=== PATIENT | male | born 1950 | race African-American/Black ===

== ENCOUNTER 2019-08-09 00:06 | Emergency (ER) | payer OTHER, MEDICAID ==
[~2019-08-09] VITALS: Ht 185.4 cm; Wt 131.5 kg
[2019-08-09] MEDS ORDERED: cloNIDine HCL 0.1 MG TAB PO ONE (01:45)
[2019-08-09 02:00] LABS: Basophils # (auto) 0 10 ^3/uL (0-0.2); Eosinophils # (auto) 0.2 10 ^3/uL (0-0.8); Eosinophils % (auto) 5.2 % (0.0-7.0); Hematocrit 43.1 % (41.0-53.0); Hemoglobin 14.6 g/dL (13.5-17.5); Lymphocytes # (auto) 1.1 10 ^3/uL (0.4-5.4); Lymphocytes % (auto) 30.1 % (10.0-50.0); Mean Corpuscular Hemoglobin 31.2 pg (28.0-32.0); Mean Corpuscular Hgb Conc. 33.8 g/dL (32.0-36.0); Mean Corpuscular Volume 92.3 fL (80.0-100.0); Monocytes # (auto) 0.6 10 ^3/uL (0-1.3); Monocytes % (auto) 16.6 % (0.0-12.0); Neutrophils # (auto) 1.8 10 ^3/uL (1.6-8.6); Neutrophils % (auto) 47.1 % (37.0-80.0); Nucleated Red Blood Cells % 0.1 %; Platelet Count (auto) 202 10^3/uL (140-450); Red Blood Cells 4.66 10^6/uL (4.5-5.90); Red Cell Distribution Width 13.6 % (11.8-14.3); White Blood Cell 3.8 10^3/uL (4.4-10.8)
[2019-08-09 03:13] LABS: INR 1.03 (0.9-1.15); Partial Thromboplastin Time 31.6 sec (23.64-32.05)
[2019-08-09 03:26] LABS: Alanine Aminotransferase 22 U/L (16-61); Albumin 4.1 g/dL (3.4-5.0); Anion Gap 9 (5-15); Aspartate Aminotransferase 16 U/L (15-37); Blood Urea Nitrogen 14 mg/dL (7-18); Carbon Dioxide 27 mmol/L (21-32); Chloride 88 mmol/L (98-107); GFR African American 96 mL/min; GFR Non-African American 79 mL/min; Glucose 119 mg/dL (74-106); Magnesium 1.9 mg/dL (1.6-2.6); Sodium 124 mmol/L (136-145)
[2019-08-09 03:31] LABS: Alkaline Phosphatase 86 U/L (45-117); Bilirubin, Total 0.4 mg/dL (0.2-1.0); Total Protein 7.9 g/dL (6.4-8.2)
[2019-08-09] MEDS ORDERED: POTASSIUM CHL 20 Meq TABLET PO ONE (04:45)
[2019-08-09] MEDS ORDERED: SODIUM CHLORIDE 0.9% 1,000 ML IV ONE (04:45)
[2019-08-09] MEDS ORDERED: hydrALAZINE HCL 20 MG/ML VL IV ONE (05:15)
[2019-08-09] MEDS ORDERED: POTASSIUM EFFERVESENT TAB 25 MEQ PO ONE (07:15)
[2019-08-09 09:38] LABS: Urine Bacteria NONE SEEN /hpf (None Seen); Urine Blood Negative /uL (Negative); Urine Specific Gravity 1.014 (1.001-1.035); Urine WBC <1 /hpf (0 - 3)
[2019-08-09 12:00] VITALS: BP 114/68
== END 2019-08-09 12:52 | disposition home or self-care (01) ==
LOC: ER 00:08
DX: R07.89 Other chest pain (principal); I10 Essential (primary) hypertension; E87.6 Hypokalemia; E87.1 Hypo-osmolality and hyponatremia; E78.5 Hyperlipidemia, unspecified; Z91.013 Allergy to seafood; Z88.8 Allergy status to other drugs, medicaments and biological substances; Z86.73 Personal history of transient ischemic attack (TIA), and cerebral infarction without residual deficits
CPT/HCPCS: 36415; 71046; 80053; 81001; 83735; 83880; 84443; 84484; 85025; 85610; 85730; 93005; 96374; 99285; J0360; J7030

== ENCOUNTER 2020-03-30 21:10 | Emergency (ER) | payer OTHER, MEDICAID ==
[~2020-03-30] VITALS: Ht 188 cm; Wt 112.0 kg
[2020-03-30] MEDS: SODIUM CHLORIDE 0.9% 1,000 ML IV ONE (22:35)
[2020-03-30] MEDS: ONDANSETRON HCL 4 MG/2 ML VIAL IV ONE (22:37)
[2020-03-30 23:04] LABS: Basophils # (auto) 0.1 10 ^3/uL (0-0.2); Basophils % (auto) 1.2 % (0.0-2.0); Eosinophils # (auto) 0.2 10 ^3/uL (0-0.8); Eosinophils % (auto) 3.3 % (0.0-7.0); Hematocrit 43.5 % (41.0-53.0); Lymphocytes # (auto) 1.4 10 ^3/uL (0.4-5.4); Lymphocytes % (auto) 22.7 % (10.0-50.0); Mean Corpuscular Hemoglobin 31.8 pg (28.0-32.0); Mean Corpuscular Hgb Conc. 34.5 g/dL (32.0-36.0); Monocytes # (auto) 0.7 10 ^3/uL (0-1.3); Monocytes % (auto) 11.2 % (0.0-12.0); Neutrophils # (auto) 3.7 10 ^3/uL (1.6-8.6); Neutrophils % (auto) 61.6 % (37.0-80.0); Nucleated Red Blood Cells % 0.1 %; Platelet Count (auto) 210 10^3/uL (140-450); Red Blood Cells 4.73 10^6/uL (4.5-5.90); Red Cell Distribution Width 13.5 % (11.8-14.3)
[2020-03-30 23:23] LABS: Albumin 4.3 g/dL (3.4-5.0); Anion Gap 7 (5-15); Blood Urea Nitrogen 19 mg/dL (7-18); Calcium 8.8 mg/dL (8.5-10.1); Carbon Dioxide 29 mmol/L (21-32); Chloride 100 mmol/L (98-107); Glucose 89 mg/dL (74-106); Potassium 3.6 mmol/L (3.5-5.1); Sodium 136 mmol/L (136-145)
[2020-03-30 23:25] LABS: GFR African American 73 mL/min; GFR Non-African American 60 mL/min
[2020-03-30 23:33] LABS: Alanine Aminotransferase 21 U/L (16-61); Alkaline Phosphatase 91 U/L (45-117); Aspartate Aminotransferase 15 U/L (15-37); Bilirubin, Total 0.4 mg/dL (0.2-1.0); Total Protein 8.3 g/dL (6.4-8.2)
[2020-03-30] MEDS: cloNIDine HCL 0.1 MG TAB PO ONE (23:46)
[2020-03-31 00:05] LABS: Urine Bacteria NONE SEEN /hpf (None Seen); Urine Blood Negative /uL (Negative); Urine Specific Gravity 1.011 (1.001-1.035); Urine WBC <1 /hpf (0 - 3)
[2020-03-31] MEDS: MECLIZINE HCL 25 MG TAB PO ONE (00:32)
[2020-03-31 00:45] VITALS: BP 154/95
== END 2020-03-31 02:33 | disposition home or self-care (01) ==
LOC: ER 21:10
DX: R42 Dizziness and giddiness (principal); I10 Essential (primary) hypertension; E78.5 Hyperlipidemia, unspecified
CPT/HCPCS: 36415; 70450; 80053; 81001; 84484; 85025; 93005; 99285; J8597

== ENCOUNTER 2020-07-06 18:38 | Emergency (ER) | payer OTHER, MEDICAID ==
[~2020-07-06] VITALS: Ht 182.9 cm; Wt 114.8 kg
[2020-07-06] MEDS ORDERED: cloNIDine HCL 0.1 MG TAB ONE (18:41)
[2020-07-06] MEDS ORDERED: cloNIDine HCL 0.1 MG TAB PO ONE (18:45)
[2020-07-06 21:40] LABS: Basophils # (auto) 0 10 ^3/uL (0-0.2); Basophils % (auto) 1.1 % (0.0-2.0); Eosinophils # (auto) 0.2 10 ^3/uL (0-0.8); Eosinophils % (auto) 5.6 % (0.0-7.0); Hematocrit 37.9 % (41.0-53.0); Hemoglobin 13.2 g/dL (13.5-17.5); Lymphocytes # (auto) 1.3 10 ^3/uL (0.4-5.4); Lymphocytes % (auto) 34.1 % (10.0-50.0); Mean Corpuscular Hgb Conc. 34.8 g/dL (32.0-36.0); Mean Corpuscular Volume 91.9 fL (80.0-100.0); Monocytes # (auto) 0.6 10 ^3/uL (0-1.3); Monocytes % (auto) 15.2 % (0.0-12.0); Neutrophils # (auto) 1.7 10 ^3/uL (1.6-8.6); Platelet Count (auto) 201 10^3/uL (140-450); Red Blood Cells 4.13 10^6/uL (4.5-5.90); Red Cell Distribution Width 13.6 % (11.8-14.3); White Blood Cell 3.8 10^3/uL (4.4-10.8)
[2020-07-06 22:00] LABS: BUN/Creatinine Ratio 11.9; Calcium 8.7 mg/dL (8.5-10.1); Magnesium 2.1 mg/dL (1.6-2.6); Potassium 3.2 mmol/L (3.5-5.1)
[2020-07-06 22:02] LABS: Bilirubin, Total 0.4 mg/dL (0.2-1.0); Total Protein 7.3 g/dL (6.4-8.2)
[2020-07-06] MEDS ORDERED: POTASSIUM EFFERVESENT TAB 25 MEQ PO ONE (23:00)
[2020-07-07 00:10] VITALS: BP 164/94
== END 2020-07-07 00:20 | disposition home or self-care (01) ==
LOC: ER 18:40
DX: I10 Essential (primary) hypertension (principal); E78.5 Hyperlipidemia, unspecified; Z91.041 Radiographic dye allergy status
CPT/HCPCS: 36415; 71045; 80053; 83735; 83880; 84484; 85025; 93005

== ENCOUNTER 2021-10-23 01:28 | Inpatient (IN) | payer OTHER, MEDICAID ==
[~2021-10-23] VITALS: Ht 182.9 cm; Wt 125.1 kg
[2021-10-23] VITALS (29 sets, daily range): BP systolic 79–125; BP diastolic 49–84
[2021-10-23] MEDS ORDERED: IOHEXOL 350 MG/ML 100ML IJ ONE (01:57)
[2021-10-23] MEDS ORDERED: SODIUM CHLORIDE 0.9% 1,000 ML IV ONE (02:00)
[2021-10-23] MEDS ORDERED: SODIUM CHLORIDE 0.9% 3,500 ML IV ONE (02:30)
[2021-10-23 02:41] LABS: Basophils # (auto) 0 10 ^3/uL (0-0.2); Eosinophils # (auto) 0 10 ^3/uL (0-0.8); Eosinophils % (auto) 0.1 % (0.0-7.0); Hematocrit 17.1 % (41.0-53.0); Red Blood Cells 1.82 10^6/uL (4.5-5.90)
[2021-10-23 02:43] LABS: Basophils % (auto) 0.2 % (0.0-2.0); Lymphocytes # (auto) 1.2 10 ^3/uL (0.4-5.4); Lymphocytes % (auto) 10.9 % (10.0-50.0); Mean Corpuscular Hemoglobin 32.6 pg (28.0-32.0); Mean Corpuscular Hgb Conc. 34.8 g/dL (32.0-36.0); Mean Corpuscular Volume 93.6 fL (80.0-100.0); Monocytes # (auto) 0.7 10 ^3/uL (0-1.3); Monocytes % (auto) 6.7 % (0.0-12.0); Neutrophils # (auto) 8.7 10 ^3/uL (1.6-8.6); Neutrophils % (auto) 82.1 % (37.0-80.0); Nucleated Red Blood Cells % 0.5 %; Red Cell Distribution Width 13.4 % (11.8-14.3); White Blood Cell 10.6 10^3/uL (4.4-10.8)
[2021-10-23 02:46] LABS: Hemoglobin 5.9 g/dL (13.5-17.5)
[2021-10-23 02:57] LABS: INR 1.18 (0.9-1.15); Partial Thromboplastin Time 23.1 sec (23.6-33.0)
[2021-10-23 03:01] LABS: Albumin 2.7 g/dL (3.4-5.0); BUN/Creatinine Ratio 26.3; Calcium 7.8 mg/dL (8.5-10.1); Potassium 3.6 mmol/L (3.5-5.1)
[2021-10-23 03:04] LABS: Bilirubin, Total 0.2 mg/dL (0.2-1.0); Total Protein 4.9 g/dL (6.4-8.2)
[2021-10-23] MEDS ORDERED: fentaNYL CITRATE 100 MCG/2 ML VL IV ONE (05:00)
[2021-10-23] MEDS ORDERED: SODIUM CHLORIDE 0.9% 1,000 ML IV SCH (06:45)
[2021-10-23] MEDS ORDERED: MORPHINE SULFATE INJ 2 MG/ml SYRG IV PRN (06:45)
[2021-10-23] MEDS ORDERED: ONDANSETRON HCL 4 MG/2 ML VIAL IV PRN (06:45)
[2021-10-23 11:28] LABS: Hematocrit 25.7 % (41.0-53.0); Hemoglobin 8.8 g/dL (13.5-17.5)
[2021-10-23] MEDS: AZITHROMYCIN 500MG/ 250ML 250 ML IV SCH (11:43)
[2021-10-23] MEDS: PANTOPRAZOLE 40mg/50ML NS AE 50 ML IV SCH ×2 (12:25→12:33)
[2021-10-23 13:32] LABS: Urine Bacteria NONE SEEN /hpf (None Seen); Urine Blood Negative /uL (Negative); Urine WBC <1 /hpf (0 - 3)
[2021-10-23] MEDS ORDERED: FUROSEMIDE 20 MG/2 ML VIAL IV ONE (14:30)
[2021-10-23] MEDS ORDERED: PANTOPRAZOLE 40 MG/10 ML VIAL INJ IV ONE (14:30)
[2021-10-23] MEDS ORDERED: cefTRIAXone 1GM/50ML D5W 50 ML IV ONE (14:45)
[2021-10-23 15:20] LABS: Alcohol, Urine < 3.0 mg/dL (0-10); Barbiturate Scree,Urine NEGATIVE (NEGATIVE); Benzodiazephine Screen, Urine NEGATIVE (NEGATIVE); Cannabinoid Screen, Urine NEGATIVE (NEGATIVE); Phencyclidine Screen, Urine NEGATIVE (NEGATIVE)
[2021-10-23 15:23] LABS: Amphetamine Screen, Urine NEGATIVE (NEGATIVE); Cocaine Screen, Urine NEGATIVE (NEGATIVE); Opiate Scree,Urine NEGATIVE (NEGATIVE)
[2021-10-23] MEDS ORDERED: DIGOXIN (250MCG/ML) 2 ML AMPULE IV ONE (16:30)
[2021-10-23] MEDS: SUCRALFATE 1 GM TAB PO SCH ×2 (17:12→21:47)
[2021-10-23] MEDS: PANTOPRAZOLE 40 MG/10 ML VIAL INJ IV SCH (21:46)
[2021-10-24] VITALS (11 sets, daily range): BP systolic 97–133; BP diastolic 58–80
[2021-10-24] MEDS: NITROGLYCERIN 0.4 MG SL TAB SL PRN ×2 (02:37→02:41)
[2021-10-24] MEDS ORDERED: dilTIAZem 25 MG/5 ML VIAL IV ONE (03:00)
[2021-10-24 05:11] LABS: Basophils # (auto) 0 10 ^3/uL (0-0.2); Eosinophils # (auto) 0.2 10 ^3/uL (0-0.8); Lymphocytes # (auto) 0.9 10 ^3/uL (0.4-5.4); Monocytes # (auto) 1.3 10 ^3/uL (0-1.3); White Blood Cell 12.8 10^3/uL (4.4-10.8)
[2021-10-24 05:13] LABS: Basophils % (auto) 0.2 % (0.0-2.0); Eosinophils % (auto) 1.4 % (0.0-7.0); Hematocrit 18.4 % (41.0-53.0); Lymphocytes % (auto) 6.8 % (10.0-50.0); Mean Corpuscular Hemoglobin 32.9 pg (28.0-32.0); Mean Corpuscular Hgb Conc. 36.3 g/dL (32.0-36.0); Mean Corpuscular Volume 90.5 fL (80.0-100.0); Neutrophils # (auto) 10.4 10 ^3/uL (1.6-8.6); Neutrophils % (auto) 81.6 % (37.0-80.0); Nucleated Red Blood Cells % 1.2 %; Red Blood Cells 2.03 10^6/uL (4.5-5.90); Red Cell Distribution Width 14.8 % (11.8-14.3)
[2021-10-24 05:14] LABS: Albumin 2.2 g/dL (3.4-5.0); Magnesium 2.1 mg/dL (1.6-2.6); Potassium 3.4 mmol/L (3.5-5.1)
[2021-10-24 05:17] LABS: BUN/Creatinine Ratio 26.6; Bilirubin, Total 0.2 mg/dL (0.2-1.0); Total Protein 4.6 g/dL (6.4-8.2)
[2021-10-24 05:22] LABS: Hemoglobin 6.7 g/dL (13.5-17.5)
[2021-10-24] MEDS: SUCRALFATE 1 GM TAB PO SCH ×4 (06:19→22:37)
[2021-10-24 06:53] LABS: Eosinophils # (auto) 0.2 10 ^3/uL (0-0.8); Eosinophils % (auto) 1.3 % (0.0-7.0); Lymphocytes # (auto) 1.3 10 ^3/uL (0.4-5.4); Monocytes # (auto) 1.4 10 ^3/uL (0-1.3); Neutrophils # (auto) 10.7 10 ^3/uL (1.6-8.6); Red Cell Distribution Width 14.8 % (11.8-14.3); White Blood Cell 13.7 10^3/uL (4.4-10.8)
[2021-10-24 06:55] LABS: Basophils # (auto) 0 10 ^3/uL (0-0.2); Basophils % (auto) 0.2 % (0.0-2.0); Hematocrit 18.3 % (41.0-53.0); INR 1.18 (0.9-1.15); Lymphocytes % (auto) 9.7 % (10.0-50.0); Mean Corpuscular Hemoglobin 32.5 pg (28.0-32.0); Mean Corpuscular Hgb Conc. 35.9 g/dL (32.0-36.0); Mean Corpuscular Volume 90.3 fL (80.0-100.0); Monocytes % (auto) 10.5 % (0.0-12.0); Neutrophils % (auto) 78.3 % (37.0-80.0); Partial Thromboplastin Time 29.3 sec (23.6-33.0); Red Blood Cells 2.03 10^6/uL (4.5-5.90)
[2021-10-24 07:30] LABS: Hemoglobin 6.6 g/dL (13.5-17.5)
[2021-10-24] MEDS ORDERED: SODIUM CHLORIDE LOCK 10 ML ONE (09:28)
[2021-10-24] MEDS ORDERED: MIDAZOLAM HCL 5 MG/ML-1ML VIAL ONE (09:29)
[2021-10-24] MEDS ORDERED: LIDOCAINE VISCOUS 2% 15ML UD ONE (09:29)
[2021-10-24] MEDS ORDERED: diphenhdrAMINE HCL 50 MG/1 ML VL ONE (09:29)
[2021-10-24] MEDS ORDERED: fentaNYL CITRATE 100 MCG/2 ML VL ONE (09:30)
[2021-10-24] MEDS: DIGOXIN 0.125 MG TAB PO SCH ×2 (10:00→15:03)
[2021-10-24] MEDS ORDERED: OXCA600T3 PO (10:38)
[2021-10-24] MEDS ORDERED: LOSA-39 PO (10:38)
[2021-10-24] MEDS ORDERED: METO-158 PO (10:38)
[2021-10-24] MEDS ORDERED: HYDR25TA4 PO (10:38)
[2021-10-24] MEDS ORDERED: TERA10CA36 PO (10:38)
[2021-10-24] MEDS ORDERED: [UNRECOGNIZED DRUG - CODE] PO (10:39)
[2021-10-24] MEDS ORDERED: METOPROLOL TARTRATE 1MG/1ML-5ML VIAL IV ONE (12:45)
[2021-10-24] MEDS: cefTRIAXone 1GM/50ML D5W 50 ML IV SCH (12:59)
[2021-10-24] MEDS ORDERED: DIGOXIN (250MCG/ML) 2 ML AMPULE IV ONE ×2 (13:45→14:45)
[2021-10-24] MEDS: AZITHROMYCIN 500MG/ 250ML 250 ML IV SCH (14:05)
[2021-10-24] MEDS: FUROSEMIDE 20 MG/2 ML VIAL IV SCH (14:06)
[2021-10-24] MEDS: PANTOPRAZOLE 40 MG/10 ML VIAL INJ IV SCH ×2 (14:24→22:37)
[2021-10-24] MEDS: HYDROmorphone HCL 2 MG/ML VL/or syr IV PRN (14:25)
[2021-10-24] MEDS ORDERED: POTASSIUM EFFERVESENT TAB 25 MEQ PO ONE (16:15)
[2021-10-24] MEDS ORDERED: AMIODARONE HCL 150 MG in D5W 5% 100 ML IV ONE (16:15)
[2021-10-24] MEDS ORDERED: AMIODARONE 450mg/250ml AE 250 ML IV SCH ×3 (16:30→22:30)
[2021-10-24] MEDS: OXcarbazepine 300 MG TAB PO SCH (16:54)
[2021-10-24] MEDS ORDERED: BACLOFEN 10 MG TAB PO ONE (17:15)
[2021-10-24] MEDS ORDERED: BACLOFEN 10 MG TAB PO PRN (17:15)
[2021-10-24] MEDS ORDERED: AMIODARONE HCL (50 MG/ ML) 3 ML VIAL IV ONE (17:30)
[2021-10-24] MEDS ORDERED: FUROSEMIDE 20 MG/2 ML VIAL IV ONE (17:30)
[2021-10-24] MEDS ORDERED: POTASSIUM CHLORIDE 40 MEQ, LIDOCAINE 1% (LOCAL ANESTH.) 4 ML in SODIUM CHL 0.9% 250 ML IV ONE (17:30)
[2021-10-24 19:13] LABS: Basophils # (auto) 0 10 ^3/uL (0-0.2); Basophils % (auto) 0.3 % (0.0-2.0); Eosinophils # (auto) 0.4 10 ^3/uL (0-0.8); Eosinophils % (auto) 2.7 % (0.0-7.0); Hematocrit 26.2 % (41.0-53.0); Hemoglobin 9.2 g/dL (13.5-17.5); Lymphocytes # (auto) 1.8 10 ^3/uL (0.4-5.4); Lymphocytes % (auto) 13.5 % (10.0-50.0); Mean Corpuscular Hemoglobin 31.9 pg (28.0-32.0); Mean Corpuscular Volume 91.2 fL (80.0-100.0); Monocytes # (auto) 1.5 10 ^3/uL (0-1.3); Neutrophils # (auto) 9.6 10 ^3/uL (1.6-8.6); Neutrophils % (auto) 72.5 % (37.0-80.0); Nucleated Red Blood Cells % 1.5 %; Red Blood Cells 2.88 10^6/uL (4.5-5.90); Red Cell Distribution Width 14.4 % (11.8-14.3); White Blood Cell 13.3 10^3/uL (4.4-10.8)
[2021-10-24] MEDS: METOPROLOL TARTRATE 25 MG TAB PO SCH (22:38)
[2021-10-25 05:00] VITALS: BP 110/56
[2021-10-25] MEDS: OXcarbazepine 300 MG TAB PO SCH ×4 (06:42→19:33)
[2021-10-25] MEDS: SUCRALFATE 1 GM TAB PO SCH ×4 (06:42→22:15)
[2021-10-25 07:21] LABS: Basophils # (auto) 0 10 ^3/uL (0-0.2); Basophils % (auto) 0.3 % (0.0-2.0); Eosinophils # (auto) 0.4 10 ^3/uL (0-0.8); Eosinophils % (auto) 3.5 % (0.0-7.0); Lymphocytes # (auto) 1.5 10 ^3/uL (0.4-5.4); Mean Corpuscular Hemoglobin 32.1 pg (28.0-32.0); Monocytes # (auto) 1.2 10 ^3/uL (0-1.3); Nucleated Red Blood Cells % 2.1 %; Red Blood Cells 2.61 10^6/uL (4.5-5.90)
[2021-10-25 07:23] LABS: Lymphocytes % (auto) 13.4 % (10.0-50.0); Mean Corpuscular Hgb Conc. 34.8 g/dL (32.0-36.0); Monocytes % (auto) 10.6 % (0.0-12.0); Neutrophils % (auto) 72.2 % (37.0-80.0); Red Cell Distribution Width 14.3 % (11.8-14.3); White Blood Cell 11.1 10^3/uL (4.4-10.8)
[2021-10-25 07:32] LABS: Hemoglobin 8.4 g/dL (13.5-17.5)
[2021-10-25 07:37] LABS: BUN/Creatinine Ratio 18.1; Calcium 7.4 mg/dL (8.5-10.1); Magnesium 2.1 mg/dL (1.6-2.6); Potassium 3.8 mmol/L (3.5-5.1)
[2021-10-25 08:00] VITALS: BP 121/61
[2021-10-25 09:00] VITALS: BP 121/61
[2021-10-25] MEDS: AZITHROMYCIN 500MG/ 250ML 250 ML IV SCH (09:48)
[2021-10-25] MEDS: cefTRIAXone 1GM/50ML D5W 50 ML IV SCH (09:48)
[2021-10-25] MEDS: PANTOPRAZOLE 40 MG/10 ML VIAL INJ IV SCH ×2 (09:48→22:15)
[2021-10-25] MEDS: DIGOXIN 0.125 MG TAB PO SCH (09:49)
[2021-10-25] MEDS: FUROSEMIDE 20 MG/2 ML VIAL IV SCH (09:49)
[2021-10-25] MEDS: METOPROLOL TARTRATE 25 MG TAB PO SCH ×2 (09:49→22:15)
[2021-10-25 13:00] VITALS: BP 122/61
[2021-10-25] MEDS: AMIODARONE 450mg/250ml AE 250 ML IV SCH (14:14)
[2021-10-25 17:00] VITALS: BP 119/62
[2021-10-25 22:00] VITALS: BP 116/76
[2021-10-26] MEDS: OXcarbazepine 300 MG TAB PO SCH ×5 (00:12→23:46)
[2021-10-26] MEDS: AMIODARONE 450mg/250ml AE 250 ML IV SCH ×2 (04:26→04:58)
[2021-10-26 05:00] VITALS: BP 113/61
[2021-10-26] MEDS: SUCRALFATE 1 GM TAB PO SCH ×4 (06:12→22:46)
[2021-10-26 07:07] LABS: Eosinophils # (auto) 0.2 10 ^3/uL (0-0.8); Hemoglobin 7.6 g/dL (13.5-17.5); Monocytes # (auto) 1.4 10 ^3/uL (0-1.3); White Blood Cell 11.2 10^3/uL (4.4-10.8)
[2021-10-26 07:10] LABS: Basophils # (auto) 0 10 ^3/uL (0-0.2); Basophils % (auto) 0.1 % (0.0-2.0); Eosinophils % (auto) 1.8 % (0.0-7.0); Hematocrit 21.9 % (41.0-53.0); Lymphocytes # (auto) 1.2 10 ^3/uL (0.4-5.4); Lymphocytes % (auto) 10.5 % (10.0-50.0); Mean Corpuscular Hemoglobin 32.3 pg (28.0-32.0); Mean Corpuscular Hgb Conc. 34.7 g/dL (32.0-36.0); Monocytes % (auto) 12.8 % (0.0-12.0); Neutrophils # (auto) 8.4 10 ^3/uL (1.6-8.6); Neutrophils % (auto) 74.8 % (37.0-80.0); Nucleated Red Blood Cells % 0.6 %; Red Blood Cells 2.36 10^6/uL (4.5-5.90); Red Cell Distribution Width 14.3 % (11.8-14.3)
[2021-10-26 08:37] VITALS: BP 120/72
[2021-10-26] MEDS ORDERED: fentaNYL CITRATE 100 MCG/2 ML VL ONE (09:07)
[2021-10-26] MEDS ORDERED: SODIUM CHLORIDE LOCK 10 ML ONE (09:08)
[2021-10-26] MEDS ORDERED: PROPOFOL 10 MG/ML 20 ML IV ONE ×2 (09:08→10:48)
[2021-10-26] MEDS ORDERED: ONDANSETRON HCL 4 MG/2 ML VIAL ONE (09:08)
[2021-10-26] MEDS ORDERED: MIDAZOLAM HCL 2MG/2ML 2ml VIAL (1mg/ml) ONE (09:08)
[2021-10-26] MEDS: cefTRIAXone 1GM/50ML D5W 50 ML IV SCH (10:11)
[2021-10-26] MEDS: METOPROLOL TARTRATE 25 MG TAB PO SCH ×2 (10:12→22:47)
[2021-10-26] MEDS: PANTOPRAZOLE 40 MG/10 ML VIAL INJ IV SCH ×2 (10:12→22:46)
[2021-10-26] MEDS: AMIODARONE HCL 200 MG TAB PO SCH ×2 (10:12→22:48)
[2021-10-26] MEDS: FUROSEMIDE 20 MG/2 ML VIAL IV SCH (10:12)
[2021-10-26] MEDS ORDERED: DexAMETHasone SOD PHOS 10MG/1ML VIAL INJ IV ONE (13:22)
[2021-10-26] MEDS: AZITHROMYCIN 500MG/ 250ML 250 ML IV SCH ×2 (14:12→18:33)
[2021-10-26] MEDS ORDERED: traMADol HCL 50 MG TAB PO PRN (15:00)
[2021-10-26] MEDS: traMADol HCL 50 MG TAB PO PRN (15:30)
[2021-10-26] MEDS ORDERED: GOLYTELY 4L KIT PO ONE (15:45)
[2021-10-26 17:00] VITALS: BP 116/55
[2021-10-26 22:00] VITALS: BP 143/80
[2021-10-27 05:00] VITALS: BP 148/81
[2021-10-27] MEDS: SUCRALFATE 1 GM TAB PO SCH ×4 (05:43→21:38)
[2021-10-27] MEDS: OXcarbazepine 300 MG TAB PO SCH ×3 (05:43→18:34)
[2021-10-27 09:00] VITALS: BP 99/60
[2021-10-27] MEDS ORDERED: MIDAZOLAM HCL 2MG/2ML 2ml VIAL (1mg/ml) ONE (09:39)
[2021-10-27] MEDS ORDERED: PROPOFOL 10 MG/ML 20 ML IV ONE (09:39)
[2021-10-27] MEDS: AMIODARONE HCL 200 MG TAB PO SCH ×2 (10:00→21:38)
[2021-10-27] MEDS: FUROSEMIDE 20 MG/2 ML VIAL IV SCH (10:00)
[2021-10-27] MEDS: METOPROLOL TARTRATE 25 MG TAB PO SCH ×2 (10:00→21:38)
[2021-10-27] MEDS ORDERED: fentaNYL CITRATE 100 MCG/2 ML VL ONE (10:12)
[2021-10-27] MEDS ORDERED: HYDROmorphone HCL 2 MG/ML VL/or syr IV PRN (10:30)
[2021-10-27] MEDS ORDERED: ONDANSETRON HCL 4 MG/2 ML VIAL IV PRN (10:30)
[2021-10-27] MEDS ORDERED: METOPROLOL TARTRATE 1MG/1ML-5ML VIAL IV ONE (10:45)
[2021-10-27] MEDS ORDERED: AMIODARONE HCL 200 MG TAB PO ONE (11:15)
[2021-10-27] MEDS ORDERED: DIGOXIN (250MCG/ML) 2 ML AMPULE IV ONE (11:15)
[2021-10-27 11:19] LABS: Basophils # (auto) 0 10 ^3/uL (0-0.2); Basophils % (auto) 0.2 % (0.0-2.0); Eosinophils # (auto) 0.1 10 ^3/uL (0-0.8); Eosinophils % (auto) 0.8 % (0.0-7.0); Lymphocytes # (auto) 0.4 10 ^3/uL (0.4-5.4); Red Cell Distribution Width 14.3 % (11.8-14.3)
[2021-10-27 11:21] LABS: Hematocrit 15.9 % (41.0-53.0); Lymphocytes % (auto) 5.5 % (10.0-50.0); Mean Corpuscular Hgb Conc. 35.3 g/dL (32.0-36.0); Mean Corpuscular Volume 93.4 fL (80.0-100.0); Monocytes % (auto) 12.1 % (0.0-12.0); Neutrophils # (auto) 6.5 10 ^3/uL (1.6-8.6); Neutrophils % (auto) 81.4 % (37.0-80.0); Nucleated Red Blood Cells % 0.4 %; Red Blood Cells 1.71 10^6/uL (4.5-5.90)
[2021-10-27 11:31] LABS: Hemoglobin 5.6 g/dL (13.5-17.5)
[2021-10-27] MEDS: cefTRIAXone 1GM/50ML D5W 50 ML IV SCH (12:40)
[2021-10-27] MEDS: PANTOPRAZOLE 40 MG/10 ML VIAL INJ IV SCH ×2 (13:58→21:37)
[2021-10-27] MEDS: AZITHROMYCIN 500MG/ 250ML 250 ML IV SCH (13:59)
[2021-10-27 17:00] VITALS: BP 116/70
[2021-10-27 22:00] VITALS: BP 125/71
[2021-10-27 22:21] VITALS: BP 131/61
[2021-10-27 22:38] VITALS: BP 133/63
[2021-10-28] VITALS (9 sets, daily range): BP systolic 115–159; BP diastolic 53–81
[2021-10-28] MEDS: OXcarbazepine 300 MG TAB PO SCH ×5 (05:49→23:55)
[2021-10-28] MEDS: SUCRALFATE 1 GM TAB PO SCH ×4 (06:03→22:50)
[2021-10-28 07:33] LABS: Basophils # (auto) 0 10 ^3/uL (0-0.2); Basophils % (auto) 0.3 % (0.0-2.0); Eosinophils # (auto) 0.1 10 ^3/uL (0-0.8); Eosinophils % (auto) 1.2 % (0.0-7.0); Hemoglobin 9.4 g/dL (13.5-17.5); Lymphocytes # (auto) 1.1 10 ^3/uL (0.4-5.4); Lymphocytes % (auto) 9.1 % (10.0-50.0); Mean Corpuscular Hemoglobin 33.1 pg (28.0-32.0); Mean Corpuscular Hgb Conc. 36.3 g/dL (32.0-36.0); Mean Corpuscular Volume 91.2 fL (80.0-100.0); Monocytes # (auto) 1.2 10 ^3/uL (0-1.3); Monocytes % (auto) 10.2 % (0.0-12.0); Neutrophils # (auto) 9.3 10 ^3/uL (1.6-8.6); Neutrophils % (auto) 79.2 % (37.0-80.0); Nucleated Red Blood Cells % 0.3 %; Red Blood Cells 2.85 10^6/uL (4.5-5.90); Red Cell Distribution Width 14.5 % (11.8-14.3); White Blood Cell 11.8 10^3/uL (4.4-10.8)
[2021-10-28] MEDS: PANTOPRAZOLE 40 MG/10 ML VIAL INJ IV SCH ×2 (09:52→22:49)
[2021-10-28] MEDS: cefTRIAXone 1GM/50ML D5W 50 ML IV SCH (09:52)
[2021-10-28] MEDS: FUROSEMIDE 20 MG/2 ML VIAL IV SCH (09:53)
[2021-10-28] MEDS: METOPROLOL TARTRATE 25 MG TAB PO SCH ×2 (09:53→22:51)
[2021-10-28] MEDS: AMIODARONE HCL 200 MG TAB PO SCH ×2 (09:54→22:50)
[2021-10-28] MEDS: traMADol HCL 50 MG TAB PO PRN ×2 (16:12→23:55)
[2021-10-29 05:07] VITALS: BP 160/80
[2021-10-29] MEDS: OXcarbazepine 300 MG TAB PO SCH ×4 (06:42→23:59)
[2021-10-29] MEDS: SUCRALFATE 1 GM TAB PO SCH ×4 (06:42→22:21)
[2021-10-29 09:00] VITALS: BP 121/82
[2021-10-29] MEDS: FUROSEMIDE 20 MG/2 ML VIAL IV SCH (09:09)
[2021-10-29] MEDS: PANTOPRAZOLE 40 MG/10 ML VIAL INJ IV SCH ×2 (09:09→22:20)
[2021-10-29] MEDS: METOPROLOL TARTRATE 25 MG TAB PO SCH ×2 (09:09→22:21)
[2021-10-29] MEDS: AMIODARONE HCL 200 MG TAB PO SCH ×2 (09:09→22:22)
[2021-10-29 11:30] LABS: Basophils # (auto) 0.1 10 ^3/uL (0-0.2); Basophils % (auto) 0.8 % (0.0-2.0); Eosinophils # (auto) 0.2 10 ^3/uL (0-0.8); Eosinophils % (auto) 2.2 % (0.0-7.0); Hematocrit 28.9 % (41.0-53.0); Hemoglobin 10.1 g/dL (13.5-17.5); Lymphocytes # (auto) 0.6 10 ^3/uL (0.4-5.4); Lymphocytes % (auto) 6.1 % (10.0-50.0); Mean Corpuscular Hemoglobin 31.9 pg (28.0-32.0); Mean Corpuscular Volume 91.2 fL (80.0-100.0); Monocytes # (auto) 0.7 10 ^3/uL (0-1.3); Monocytes % (auto) 7.5 % (0.0-12.0); Neutrophils # (auto) 7.9 10 ^3/uL (1.6-8.6); Neutrophils % (auto) 83.4 % (37.0-80.0); Nucleated Red Blood Cells % 0.1 %; Red Blood Cells 3.16 10^6/uL (4.5-5.90); Red Cell Distribution Width 14.5 % (11.8-14.3); White Blood Cell 9.5 10^3/uL (4.4-10.8)
[2021-10-29 13:00] VITALS: BP 147/80
[2021-10-29 17:00] VITALS: BP 165/99
[2021-10-29] MEDS ORDERED: METOPROLOL TARTRATE 1MG/1ML-5ML VIAL IV ONE (18:30)
[2021-10-29 20:00] VITALS: BP 165/95
[2021-10-30] VITALS (7 sets, daily range): BP systolic 134–165; BP diastolic 50–100
[2021-10-30] MEDS: METOPROLOL TARTRATE 25 MG TAB PO SCH ×2 (05:37→22:07)
[2021-10-30] MEDS: OXcarbazepine 300 MG TAB PO SCH ×3 (05:40→17:41)
[2021-10-30 05:47] LABS: Basophils # (auto) 0.1 10 ^3/uL (0-0.2); Basophils % (auto) 1.3 % (0.0-2.0); Eosinophils # (auto) 0.3 10 ^3/uL (0-0.8); Eosinophils % (auto) 3.9 % (0.0-7.0); Hematocrit 27.1 % (41.0-53.0); Hemoglobin 9.6 g/dL (13.5-17.5); Lymphocytes # (auto) 0.9 10 ^3/uL (0.4-5.4); Lymphocytes % (auto) 11.1 % (10.0-50.0); Mean Corpuscular Hemoglobin 32.5 pg (28.0-32.0); Mean Corpuscular Hgb Conc. 35.5 g/dL (32.0-36.0); Mean Corpuscular Volume 91.7 fL (80.0-100.0); Monocytes # (auto) 0.7 10 ^3/uL (0-1.3); Neutrophils % (auto) 74.7 % (37.0-80.0); Nucleated Red Blood Cells % 0.2 %; Red Blood Cells 2.95 10^6/uL (4.5-5.90); Red Cell Distribution Width 14.4 % (11.8-14.3); White Blood Cell 8.1 10^3/uL (4.4-10.8)
[2021-10-30] MEDS: SUCRALFATE 1 GM TAB PO SCH ×4 (06:42→22:06)
[2021-10-30] MEDS: PANTOPRAZOLE 40 MG/10 ML VIAL INJ IV SCH ×2 (10:41→22:06)
[2021-10-30] MEDS: FUROSEMIDE 20 MG/2 ML VIAL IV SCH (10:41)
[2021-10-30] MEDS: AMIODARONE HCL 200 MG TAB PO SCH ×2 (10:42→22:06)
[2021-10-30] MEDS: HYDROmorphone HCL 2 MG/ML VL/or syr IV PRN (22:44)
[2021-10-31] MEDS: OXcarbazepine 300 MG TAB PO SCH ×5 (00:15→23:34)
[2021-10-31 05:00] VITALS: BP 156/84
[2021-10-31] MEDS: HYDROmorphone HCL 2 MG/ML VL/or syr IV PRN (05:00)
[2021-10-31] MEDS: SUCRALFATE 1 GM TAB PO SCH ×4 (06:26→21:43)
[2021-10-31 07:10] LABS: Basophils # (auto) 0 10 ^3/uL (0-0.2); Basophils % (auto) 0.5 % (0.0-2.0); Eosinophils # (auto) 0.4 10 ^3/uL (0-0.8); Eosinophils % (auto) 4.5 % (0.0-7.0); Hematocrit 29.5 % (41.0-53.0); Lymphocytes # (auto) 1.2 10 ^3/uL (0.4-5.4); Lymphocytes % (auto) 14.5 % (10.0-50.0); Mean Corpuscular Hgb Conc. 33.9 g/dL (32.0-36.0); Mean Corpuscular Volume 91.4 fL (80.0-100.0); Monocytes # (auto) 0.8 10 ^3/uL (0-1.3); Monocytes % (auto) 9.8 % (0.0-12.0); Neutrophils # (auto) 6.1 10 ^3/uL (1.6-8.6); Neutrophils % (auto) 70.7 % (37.0-80.0); Nucleated Red Blood Cells % 0.2 %; Red Blood Cells 3.22 10^6/uL (4.5-5.90); Red Cell Distribution Width 14.4 % (11.8-14.3); White Blood Cell 8.6 10^3/uL (4.4-10.8)
[2021-10-31] MEDS: PANTOPRAZOLE 40 MG/10 ML VIAL INJ IV SCH ×2 (08:44→21:42)
[2021-10-31] MEDS: FUROSEMIDE 20 MG/2 ML VIAL IV SCH (08:44)
[2021-10-31] MEDS: traMADol HCL 50 MG TAB PO PRN (08:45)
[2021-10-31] MEDS: AMIODARONE HCL 200 MG TAB PO SCH ×2 (08:45→21:43)
[2021-10-31] MEDS: METOPROLOL TARTRATE 25 MG TAB PO SCH ×2 (08:45→21:44)
[2021-10-31 09:15] VITALS: BP 155/121
[2021-10-31 12:45] VITALS: BP 160/119
[2021-10-31 17:14] VITALS: BP 135/91
[2021-10-31 22:00] VITALS: BP 174/89
[2021-11-01 05:00] VITALS: BP 136/71
[2021-11-01] MEDS: OXcarbazepine 300 MG TAB PO SCH ×3 (06:19→18:04)
[2021-11-01] MEDS: SUCRALFATE 1 GM TAB PO SCH ×4 (06:20→21:10)
[2021-11-01 09:00] VITALS: BP 153/91
[2021-11-01 09:05] LABS: Basophils # (auto) 0.1 10 ^3/uL (0-0.2); Basophils % (auto) 0.8 % (0.0-2.0); Eosinophils # (auto) 0.3 10 ^3/uL (0-0.8); Eosinophils % (auto) 3.3 % (0.0-7.0); Hematocrit 28.3 % (41.0-53.0); Hemoglobin 9.9 g/dL (13.5-17.5); Lymphocytes # (auto) 1.1 10 ^3/uL (0.4-5.4); Lymphocytes % (auto) 13.4 % (10.0-50.0); Mean Corpuscular Hemoglobin 31.6 pg (28.0-32.0); Mean Corpuscular Hgb Conc. 35.1 g/dL (32.0-36.0); Mean Corpuscular Volume 90.1 fL (80.0-100.0); Monocytes # (auto) 0.7 10 ^3/uL (0-1.3); Monocytes % (auto) 8.9 % (0.0-12.0); Neutrophils # (auto) 6.1 10 ^3/uL (1.6-8.6); Neutrophils % (auto) 73.6 % (37.0-80.0); Nucleated Red Blood Cells % 0.1 %; Red Blood Cells 3.14 10^6/uL (4.5-5.90); Red Cell Distribution Width 14.7 % (11.8-14.3); White Blood Cell 8.3 10^3/uL (4.4-10.8)
[2021-11-01] MEDS: PANTOPRAZOLE 40 MG/10 ML VIAL INJ IV SCH ×2 (09:22→21:10)
[2021-11-01] MEDS: FUROSEMIDE 20 MG/2 ML VIAL IV SCH (09:22)
[2021-11-01] MEDS: AMIODARONE HCL 200 MG TAB PO SCH ×2 (09:23→21:11)
[2021-11-01] MEDS: METOPROLOL TARTRATE 25 MG TAB PO SCH ×2 (09:23→21:13)
[2021-11-01 13:00] VITALS: BP 143/97
[2021-11-01] MEDS ORDERED: SUCR1TAB22 OR (16:04)
[2021-11-01] MEDS ORDERED: PANT40TA2 PO (16:04)
[2021-11-01] MEDS ORDERED: AMIO200T4 PO (16:04)
[2021-11-01 16:49] VITALS: BP 149/99
[2021-11-01 18:29] VITALS: BP 153/91
[2021-11-01 21:00] VITALS: BP 152/93
== END 2021-11-01 21:15 | disposition home or self-care (01) | DRG 377 ==
LOC: EDBD 01:28 → ER 01:32 → TELE 06:37 → TELE-WESTW 09:20
PROVIDERS: ADMIT Nurse Practitioner; ATTEND Internal Medicine
PROC: 30233N1 Transfusion of Nonautologous Red Blood Cells into Peripheral Vein, Percutaneous Approach (ICD-10-PCS; 2021-10-23)
PROC: 0DJ08ZZ Inspection of Upper Intestinal Tract, Via Natural or Artificial Opening Endoscopic (ICD-10-PCS; principal; 2021-10-26 12:20)
PROC: 0DJD8ZZ Inspection of Lower Intestinal Tract, Via Natural or Artificial Opening Endoscopic (ICD-10-PCS; 2021-10-27)
DX: K29.71 Gastritis, unspecified, with bleeding (principal); J96.00 Acute respiratory failure, unspecified whether with hypoxia or hypercapnia; I50.31 Acute diastolic (congestive) heart failure; J18.9 Pneumonia, unspecified organism; N17.9 Acute kidney failure, unspecified; D68.9 Coagulation defect, unspecified; D68.69 Other thrombophilia; I80.11 Phlebitis and thrombophlebitis of right femoral vein; I48.92 Unspecified atrial flutter; K29.81 Duodenitis with bleeding; K25.4 Chronic or unspecified gastric ulcer with hemorrhage; K44.9 Diaphragmatic hernia without obstruction or gangrene; D64.9 Anemia, unspecified; I27.20 Pulmonary hypertension, unspecified; E11.9 Type 2 diabetes mellitus without complications; I11.0 Hypertensive heart disease with heart failure; I48.91 Unspecified atrial fibrillation; J45.909 Unspecified asthma, uncomplicated; N40.0 Benign prostatic hyperplasia without lower urinary tract symptoms; E78.5 Hyperlipidemia, unspecified; I08.3 Combined rheumatic disorders of mitral, aortic and tricuspid valves; E66.9 Obesity, unspecified; Z88.8 Allergy status to other drugs, medicaments and biological substances; Z91.013 Allergy to seafood; Z71.3 Dietary counseling and surveillance; Z86.73 Personal history of transient ischemic attack (TIA), and cerebral infarction without residual deficits; Z68.36 Body mass index [BMI] 36.0-36.9, adult; Z79.84 Long term (current) use of oral hypoglycemic drugs
CPT/HCPCS: 36415; 70450; 71045; 74177; 78278; 80048; 80053; 80162; 80307; 81001; 82270; 82378; 83605; 83735; 83880; 84439; 84443; 84484; 85014; 85018; 85025; 85379; 85610; 85730; 86850; 86900; 86901; 86920; 87040; 93005; 93306; 93971; 96360; 97116; 97163; 97530; 99291; A9560; C9113; G0378; J0696; J1100; J2001; J2250; J2405; J2704; J7060

== ENCOUNTER 2022-03-01 03:07 | Emergency (ER) | payer OTHER, MEDICAID ==
[~2022-03-01] VITALS: Ht 182.9 cm; Wt 118.0 kg
[~2022-03-01 03:07] MED LIST: AMIO200T4 PO; HYDR25TA4 PO; LOSA-39 PO; METO-158 PO; OXCA600T3 PO; PANT40TA2 PO; SUCR1TAB22 OR; TERA10CA36 PO; [UNRECOGNIZED DRUG - CODE] PO
[2022-03-01 04:21] LABS: Basophils # (auto) 0 10 ^3/uL (0-0.2); Basophils % (auto) 0.3 % (0.0-2.0); Eosinophils # (auto) 0.2 10 ^3/uL (0-0.8); Eosinophils % (auto) 6.1 % (0.0-7.0); Hematocrit 37.9 % (41.0-53.0); Hemoglobin 12.9 g/dL (13.5-17.5); Lymphocytes % (auto) 26.8 % (10.0-50.0); Mean Corpuscular Hemoglobin 30.5 pg (28.0-32.0); Mean Corpuscular Hgb Conc. 34.1 g/dL (32.0-36.0); Mean Corpuscular Volume 89.3 fL (80.0-100.0); Monocytes # (auto) 0.6 10 ^3/uL (0-1.3); Monocytes % (auto) 15.3 % (0.0-12.0); Neutrophils % (auto) 51.5 % (37.0-80.0); Red Blood Cells 4.25 10^6/uL (4.5-5.90); Red Cell Distribution Width 16.8 % (11.8-14.3); White Blood Cell 3.8 10^3/uL (4.4-10.8)
[2022-03-01 04:39] LABS: Albumin 4.1 g/dL (3.4-5.0); Calcium 8.7 mg/dL (8.5-10.1); Potassium 3.8 mmol/L (3.5-5.1)
[2022-03-01 04:42] LABS: BUN/Creatinine Ratio 10.3
[2022-03-01 04:46] LABS: Bilirubin, Total 0.3 mg/dL (0.2-1.0); Total Protein 7.3 g/dL (6.4-8.2)
[2022-03-01 06:06] VITALS: BP 168/111
== END 2022-03-01 06:19 | disposition short-term general hospital (02) ==
LOC: ER 03:07
DX: I63.9 Cerebral infarction, unspecified (principal); R29.704 NIHSS score 4; R41.82 Altered mental status, unspecified; E11.9 Type 2 diabetes mellitus without complications; E78.5 Hyperlipidemia, unspecified; I10 Essential (primary) hypertension
CPT/HCPCS: 36415; 70450; 80053; 82140; 83880; 84484; 85025; 93005; 99291

== ENCOUNTER 2022-08-02 01:07 | Inpatient (IN) | payer OTHER, MEDICAID ==
[~2022-08-02] VITALS: Ht 182.9 cm; Wt 122.9 kg
[2022-08-02] MEDS ORDERED: LABETALOL HCL 5 MG/ML 4ML SYRINGE IV ONE (02:15)
[2022-08-02] MEDS ORDERED: ASPirin 81 mg TAB PO ONE (02:15)
[2022-08-02 02:54] LABS: Red Blood Cells 4.27 10^6/uL (4.5-5.90)
[2022-08-02 03:02] LABS: Urine Bacteria NONE SEEN /hpf (None Seen); Urine Blood Negative /uL (Negative); Urine Specific Gravity 1.017 (1.001-1.035); Urine WBC 1 /hpf (0 - 3)
[2022-08-02 03:08] LABS: Albumin 3.9 g/dL (3.4-5.0); BUN/Creatinine Ratio 14.2; Calcium 9.1 mg/dL (8.5-10.1); Potassium 3.9 mmol/L (3.5-5.1)
[2022-08-02 03:11] LABS: Basophils # (auto) 0 10 ^3/uL (0-0.2); Basophils % (auto) 1.2 % (0.0-2.0); Bilirubin, Total 0.4 mg/dL (0.2-1.0); Eosinophils # (auto) 0.2 10 ^3/uL (0-0.8); Hematocrit 40.5 % (41.0-53.0); Hemoglobin 14.1 g/dL (13.5-17.5); Lymphocytes # (auto) 1.1 10 ^3/uL (0.4-5.4); Lymphocytes % (auto) 32.9 % (10.0-50.0); Mean Corpuscular Hemoglobin 33.1 pg (28.0-32.0); Mean Corpuscular Volume 94.7 fL (80.0-100.0); Monocytes # (auto) 0.6 10 ^3/uL (0-1.3); Monocytes % (auto) 16.6 % (0.0-12.0); Neutrophils # (auto) 1.4 10 ^3/uL (1.6-8.6); Neutrophils % (auto) 43.3 % (37.0-80.0); Nucleated Red Blood Cells % 0.3 %; Red Cell Distribution Width 14.2 % (11.8-14.3); Total Protein 7.8 g/dL (6.4-8.2); White Blood Cell 3.3 10^3/uL (4.4-10.8)
[2022-08-02] MEDS ORDERED: ONDANSETRON HCL 4 MG/2 ML VIAL IV PRN (05:00)
[2022-08-02] MEDS ORDERED: TEMAZEPAM 15 MG CAP PO PRN (05:00)
[2022-08-02] MEDS ORDERED: MORPHINE SULFATE INJ 2 MG/ml SYRG IV PRN (05:00)
[2022-08-02] MEDS ORDERED: NITROGLYCERIN 0.4 MG SL TAB SL PRN (05:00)
[2022-08-02] MEDS ORDERED: LOSARTAN POTASSIUM 50 MG TAB PO SCH (10:00)
[2022-08-02] MEDS ORDERED: METOPROLOL SUCCINATE XL 50 MG TAB PO SCH (10:00)
[2022-08-02] MEDS ORDERED: NIFEdipine ER 30 MG TAB PO SCH (10:00)
[2022-08-02] MEDS ORDERED: HCTZ 25 MG TAB PO SCH (10:00)
[2022-08-02] MEDS: NIFEdipine ER 30 MG TAB PO SCH (10:15)
[2022-08-02] MEDS: HCTZ 25 MG TAB PO SCH (10:16)
[2022-08-02] MEDS: ASPirin 81 mg TAB PO SCH (10:16)
[2022-08-02] MEDS: PANTOPRAZOLE 40 MG TAB PO SCH (10:17)
[2022-08-02] MEDS: ENOXAPARIN SOD 40 MG/0.4 ML SYRINGE SC SCH (10:18)
[2022-08-02] MEDS ORDERED: ATOR-47 PO (11:49)
[2022-08-02] MEDS: ACETAMINOPHEN 325 MG TAB PO PRN ×3 (11:56→21:09)
[2022-08-02] MEDS: OXcarbazepine 300 MG TAB PO SCH ×3 (12:04→23:56)
[2022-08-02 13:00] VITALS: BP 164/106
[2022-08-02] MEDS: hydrALAZINE HCL 20 MG/ML VL IV PRN (15:15)
[2022-08-02 16:56] VITALS: BP 169/115
[2022-08-02 22:00] VITALS: BP 178/107
[2022-08-02] MEDS: ATORVASTATIN 20 MG TAB PO SCH (22:20)
[2022-08-02] MEDS: LABETALOL HCL 200 MG TAB PO SCH (22:21)
[2022-08-02] MEDS: cloNIDine HCL 0.1 MG TAB PO PRN (22:26)
[2022-08-03 05:00] VITALS: BP 149/90
[2022-08-03] MEDS: OXcarbazepine 300 MG TAB PO SCH ×4 (06:17→23:46)
[2022-08-03 06:30] LABS: Hematocrit 39.6 % (41.0-53.0); Hemoglobin 13.8 g/dL (13.5-17.5); Mean Corpuscular Hemoglobin 32.7 pg (28.0-32.0); Mean Corpuscular Hgb Conc. 34.8 g/dL (32.0-36.0); Mean Corpuscular Volume 93.8 fL (80.0-100.0); Red Blood Cells 4.22 10^6/uL (4.5-5.90); Red Cell Distribution Width 14.1 % (11.8-14.3); White Blood Cell 3.4 10^3/uL (4.4-10.8)
[2022-08-03 06:35] LABS: Band Neutrophils % (manual) 0; Basophils % (manual) 0 (0.0-2.0); Blast Cells 0; Metamyelocytes % 0; Myelocytes % 0; Promyelocytes % 0; Reactive Lymphocytes 0
[2022-08-03 07:11] LABS: Potassium 3.6 mmol/L (3.5-5.1)
[2022-08-03 07:18] LABS: BUN/Creatinine Ratio 16.5; Calcium 8.9 mg/dL (8.5-10.1)
[2022-08-03 08:36] LABS: Eosinophils % (manual) 4 (0-7); Lymphocytes % (manual) 29 (10.0-50.0); Monocytes % (manual) 17 (0-12)
[2022-08-03 09:00] VITALS: BP 151/90
[2022-08-03] MEDS: ASPirin 81 mg TAB PO SCH (10:33)
[2022-08-03] MEDS: HCTZ 25 MG TAB PO SCH (10:37)
[2022-08-03] MEDS: LOSARTAN POTASSIUM 50 MG TAB PO SCH (10:37)
[2022-08-03] MEDS: NIFEdipine ER 30 MG TAB PO SCH (10:38)
[2022-08-03] MEDS: LABETALOL HCL 200 MG TAB PO SCH ×2 (10:38→22:34)
[2022-08-03] MEDS: ENOXAPARIN SOD 40 MG/0.4 ML SYRINGE SC SCH (10:38)
[2022-08-03] MEDS: PANTOPRAZOLE 40 MG TAB PO SCH (10:38)
[2022-08-03 12:58] VITALS: BP 158/94
[2022-08-03] MEDS ORDERED: HYDR25TA5 PO (14:16)
[2022-08-03] MEDS ORDERED: LABE200T6 PO (14:16)
[2022-08-03] MEDS ORDERED: NIFE1TAB31 PO (14:16)
[2022-08-03 16:36] VITALS: BP 160/101
[2022-08-03] MEDS: cloNIDine HCL 0.1 MG TAB PO PRN (18:17)
[2022-08-03 18:52] VITALS: BP 154/98
[2022-08-03] MEDS: ACETAMINOPHEN 325 MG TAB PO PRN (18:57)
[2022-08-03 22:00] VITALS: BP 155/106
[2022-08-03] MEDS: ATORVASTATIN 20 MG TAB PO SCH (22:31)
[2022-08-04 05:00] VITALS: BP 130/84
[2022-08-04] MEDS: OXcarbazepine 300 MG TAB PO SCH ×3 (05:24→17:40)
[2022-08-04] MEDS: hydrALAZINE HCL 20 MG/ML VL IV PRN ×2 (08:27→14:56)
[2022-08-04 08:44] VITALS: BP 151/105
[2022-08-04] MEDS: ASPirin 81 mg TAB PO SCH (10:03)
[2022-08-04] MEDS: HCTZ 25 MG TAB PO SCH (10:04)
[2022-08-04] MEDS: NIFEdipine ER 30 MG TAB PO SCH (10:05)
[2022-08-04] MEDS: LABETALOL HCL 200 MG TAB PO SCH ×2 (10:06→21:02)
[2022-08-04] MEDS: LOSARTAN POTASSIUM 50 MG TAB PO SCH (10:07)
[2022-08-04] MEDS: PANTOPRAZOLE 40 MG TAB PO SCH (10:07)
[2022-08-04] MEDS: ENOXAPARIN SOD 40 MG/0.4 ML SYRINGE SC SCH (10:08)
[2022-08-04] MEDS ORDERED: LACTULOSE 20Gm/30ML SOLN PO ONE (11:45)
[2022-08-04 13:00] VITALS: BP 151/96
[2022-08-04] MEDS: cloNIDine HCL 0.1 MG TAB PO PRN ×2 (16:28→23:35)
[2022-08-04] MEDS ORDERED: cloNIDine HCL 0.1 MG TAB PO ONE (16:45)
[2022-08-04 17:00] VITALS: BP 151/92
[2022-08-04] MEDS: ATORVASTATIN 20 MG TAB PO SCH (21:02)
[2022-08-04 22:00] VITALS: BP 140/90
[2022-08-05] MEDS: OXcarbazepine 300 MG TAB PO SCH ×4 (01:05→17:37)
[2022-08-05 05:00] VITALS: BP 170/35
[2022-08-05] MEDS: hydrALAZINE HCL 20 MG/ML VL IV PRN ×2 (08:37→23:22)
[2022-08-05 09:29] VITALS: BP 122/80
[2022-08-05] MEDS: PANTOPRAZOLE 40 MG TAB PO SCH (10:17)
[2022-08-05] MEDS: HCTZ 25 MG TAB PO SCH (10:17)
[2022-08-05] MEDS: LABETALOL HCL 200 MG TAB PO SCH ×2 (10:18→22:17)
[2022-08-05] MEDS: ASPirin 81 mg TAB PO SCH (10:18)
[2022-08-05] MEDS: NIFEdipine ER 30 MG TAB PO SCH (10:19)
[2022-08-05] MEDS: ENOXAPARIN SOD 40 MG/0.4 ML SYRINGE SC SCH (10:20)
[2022-08-05] MEDS: LOSARTAN POTASSIUM 50 MG TAB PO SCH (10:20)
[2022-08-05 12:57] VITALS: BP 155/108
[2022-08-05 17:03] VITALS: BP 125/80
[2022-08-05] MEDS: cloNIDine HCL 0.1 MG TAB PO PRN (17:37)
[2022-08-05] MEDS ORDERED: hydrALAZINE HCL 20 MG/ML VL IV ONE (19:30)
[2022-08-05 22:00] VITALS: BP 165/95
[2022-08-05] MEDS: ATORVASTATIN 20 MG TAB PO SCH (22:17)
[2022-08-06] MEDS: OXcarbazepine 300 MG TAB PO SCH ×5 (00:34→23:50)
[2022-08-06] MEDS: cloNIDine HCL 0.1 MG TAB PO PRN (00:39)
[2022-08-06 05:26] VITALS: BP 165/115
[2022-08-06] MEDS: ENOXAPARIN SOD 40 MG/0.4 ML SYRINGE SC SCH (09:11)
[2022-08-06] MEDS: NIFEdipine ER 30 MG TAB PO SCH (09:12)
[2022-08-06] MEDS: HCTZ 25 MG TAB PO SCH (09:13)
[2022-08-06] MEDS: LOSARTAN POTASSIUM 50 MG TAB PO SCH (09:13)
[2022-08-06] MEDS: ASPirin 81 mg TAB PO SCH (09:13)
[2022-08-06] MEDS: PANTOPRAZOLE 40 MG TAB PO SCH (09:14)
[2022-08-06] MEDS: LABETALOL HCL 200 MG TAB PO SCH ×2 (09:14→22:30)
[2022-08-06] MEDS ORDERED: hydrALAZINE HCL 25 MG TAB PO SCH (10:00)
[2022-08-06] MEDS ORDERED: cloNIDine HCL 0.1 MG TAB PO PRN (13:00)
[2022-08-06 13:02] VITALS: BP 108/55
[2022-08-06 17:00] VITALS: BP 140/80
[2022-08-06] MEDS: ATORVASTATIN 20 MG TAB PO SCH (22:25)
[2022-08-07 03:43] VITALS: BP 152/101
[2022-08-07] MEDS: OXcarbazepine 300 MG TAB PO SCH ×3 (05:43→11:45)
[2022-08-07 08:54] VITALS: BP 152/87
[2022-08-07] MEDS: ENOXAPARIN SOD 40 MG/0.4 ML SYRINGE SC SCH (08:54)
[2022-08-07] MEDS: NIFEdipine ER 30 MG TAB PO SCH (08:54)
[2022-08-07] MEDS: PANTOPRAZOLE 40 MG TAB PO SCH (08:55)
[2022-08-07] MEDS: LABETALOL HCL 200 MG TAB PO SCH (08:55)
[2022-08-07] MEDS: ASPirin 81 mg TAB PO SCH (08:55)
[2022-08-07] MEDS: HCTZ 25 MG TAB PO SCH (08:56)
[2022-08-07] MEDS: LOSARTAN POTASSIUM 50 MG TAB PO SCH (08:56)
[2022-08-07] MEDS ORDERED: CLON0.1T PO (10:23)
[2022-08-07 13:45] VITALS: BP 168/107
[2022-08-07 17:20] VITALS: BP 155/99
== END 2022-08-07 17:00 | disposition home or self-care (01) | DRG 305 ==
LOC: ER 01:07 → TELE 05:00 → TELE-WESTW 10:55
PROVIDERS: ADMIT Nurse Practitioner; ATTEND Nurse Practitioner Acute Care
DX: I16.0 Hypertensive urgency (principal); E78.5 Hyperlipidemia, unspecified; G50.0 Trigeminal neuralgia; E11.9 Type 2 diabetes mellitus without complications; E66.9 Obesity, unspecified; I10 Essential (primary) hypertension; Z20.822 Contact with and (suspected) exposure to COVID-19; R55 Syncope and collapse; Z91.013 Allergy to seafood; Z79.899 Other long term (current) drug therapy; Z68.37 Body mass index [BMI] 37.0-37.9, adult; Z86.73 Personal history of transient ischemic attack (TIA), and cerebral infarction without residual deficits
CPT/HCPCS: 36415; 70450; 71045; 80048; 80053; 81001; 82088; 83880; 84244; 84484; 85007; 85025; 85027; 87426; 93005; 93306; 93976; 96372; 96374; G0378; J3490

== ENCOUNTER 2022-12-31 16:53 | Emergency (ER) | payer OTHER, MEDICAID ==
[~2022-12-31] VITALS: Ht 182.9 cm; Wt 119.5 kg
[~2022-12-31 16:53] MED LIST changes: +AMIO200T13 PO; -AMIO200T4 PO; +ATOR-47 PO; +CLON0.1T PO; +HYDR25TA5 PO; +LABE200T6 PO; -LOSA-39 PO; +LOSA100T58 PO; +NIFE1TAB31 PO
[2022-12-31] MEDS ORDERED: cloNIDine HCL 0.1 MG TAB PO ONE (17:30)
[2022-12-31] MEDS ORDERED: LOSA100T58 PO (21:14)
[2022-12-31] MEDS ORDERED: HYDR25TA5 PO (21:14)
[2022-12-31] MEDS ORDERED: LABE200T7 PO (21:14)
[2022-12-31 21:20] VITALS: BP 176/116; PULSE 82; RESP 16; TEMP 98; O2SAT 96
== END 2022-12-31 21:21 | disposition home or self-care (01) ==
LOC: ER 16:54
DX: I16.0 Hypertensive urgency (principal); E11.9 Type 2 diabetes mellitus without complications; E78.5 Hyperlipidemia, unspecified; Z86.73 Personal history of transient ischemic attack (TIA), and cerebral infarction without residual deficits; Z79.899 Other long term (current) drug therapy; Z91.013 Allergy to seafood; Z91.041 Radiographic dye allergy status

== ENCOUNTER 2023-03-01 13:14 | Emergency (ER) | payer OTHER, MEDICAID ==
[~2023-03-01] VITALS: Ht 185.4 cm; Wt 118.6 kg
[~2023-03-01 13:14] MED LIST changes: +LABE200T7 PO
[2023-03-01 14:13] VITALS: BP 139/106; PULSE 88; RESP 18; TEMP 98.1; O2SAT 98
[2023-03-01] MEDS ORDERED: methylPREDNISolone SOD SUCC 40 MG/ML VL IM ONE (15:15)
[2023-03-01] MEDS ORDERED: cefTRIAXone SOD 1,000 MG VL IM ONE (15:15)
[2023-03-01] MEDS ORDERED: LIDOCAINE 1% HCL (LOCAL ANESTH.) INJ 20ML MDV ONE (15:21)
[2023-03-01] MEDS ORDERED: LIDOCAINE 1% HCL (LOCAL ANESTH.) INJ 20ML MDV IJ ONE (15:45)
[2023-03-01] MEDS ORDERED: AZIT500T66 PO (15:59)
[2023-03-01] MEDS ORDERED: LIDO2SOL26 MT (15:59)
== END 2023-03-01 16:13 | disposition home or self-care (01) ==
LOC: ER 13:14
DX: K12.2 Cellulitis and abscess of mouth (principal); J02.9 Acute pharyngitis, unspecified; E11.9 Type 2 diabetes mellitus without complications; E78.5 Hyperlipidemia, unspecified; I10 Essential (primary) hypertension; Z91.013 Allergy to seafood; Z86.73 Personal history of transient ischemic attack (TIA), and cerebral infarction without residual deficits
CPT/HCPCS: 96372; 99284; J0696; J2001; J2920

== ENCOUNTER 2023-03-25 16:27 | Inpatient (IN) | payer OTHER, MEDICAID ==
[~2023-03-25] VITALS: Ht 185.4 cm; Wt 121.0 kg
[~2023-03-25 16:27] MED LIST changes: +AZIT500T66 PO; +LIDO2SOL26 MT
[2023-03-25 17:04] LABS: Hematocrit 39.5 % (41.0-53.0); Hemoglobin 13.5 g/dL (13.5-17.5); Mean Corpuscular Hemoglobin 32.1 pg (28.0-32.0); Mean Corpuscular Hgb Conc. 34.1 g/dL (32.0-36.0); Mean Corpuscular Volume 94.1 fL (80.0-100.0); Red Cell Distribution Width 14.1 % (11.8-14.3); White Blood Cell 3.8 10^3/uL (4.4-10.8)
[2023-03-25 17:15] LABS: Band Neutrophils % (manual) 0; Basophils % (manual) 0 (0.0-2.0); Blast Cells 0; Metamyelocytes % 0; Myelocytes % 0; Promyelocytes % 0; Reactive Lymphocytes 0
[2023-03-25 17:18] LABS: Alanine Aminotransferase 16 U/L (7-40); Alkaline Phosphatase 87 U/L (46-116); Anion Gap 6 (5-15); BUN/Creatinine Ratio 12.3 (10.0-20.0); Blood Urea Nitrogen 15 mg/dL (9-23); Calcium 9.6 mg/dL (8.5-10.1); Carbon Dioxide 29 mmol/L (20-30); Chloride 104 mmol/L (98-107); Glucose 82 mg/dL (74-106); Potassium 3.2 mmol/L (3.5-5.1); Sodium 139 mmol/L (136-145)
[2023-03-25 17:19] LABS: Albumin 4.4 g/dL (3.2-4.8); Aspartate Aminotransferase 19 U/L (13-40); Bilirubin, Total 0.4 mg/dL (0.2-1.0); Total Protein 7.3 g/dL (5.7-8.2)
[2023-03-25 19:29] LABS: Eosinophils % (manual) 14 (0-7); Lymphocytes % (manual) 19 (10.0-50.0); Monocytes % (manual) 20 (0-12)
[2023-03-25 19:30] LABS: Anisocytosis Slight; Platelet Estimate Adequate
[2023-03-25] MEDS ORDERED: cloNIDine HCL 0.1 MG TAB PO ONE (19:45)
[2023-03-25] MEDS ORDERED: ONDANSETRON HCL 4 MG/2 ML VIAL IV PRN (23:45)
[2023-03-25] MEDS ORDERED: MORPHINE SULFATE INJ 2 MG/ml SYRG IV PRN (23:45)
[2023-03-25] MEDS ORDERED: NITROGLYCERIN 0.4 MG SL TAB SL PRN (23:45)
[2023-03-25] MEDS ORDERED: ACETAMINOPHEN 325 MG TAB PO PRN (23:45)
[2023-03-26 04:35] VITALS: PULSE 62; RESP 20; O2SAT 97
[2023-03-26] MEDS: cloNIDine HCL 0.1 MG TAB PO PRN ×2 (04:41→13:32)
[2023-03-26] MEDS ORDERED: ASPirin 325 MG TAB PO ONE (05:00)
[2023-03-26] MEDS ORDERED: HYDROcodone-ACET 5/325MG TAB PO PRN (05:15)
[2023-03-26 07:03] LABS: Chloride 105 mmol/L (98-107); Potassium 3.1 mmol/L (3.5-5.1); Sodium 140 mmol/L (136-145)
[2023-03-26 07:04] LABS: Anion Gap 4 (5-15); Calcium 9.1 mg/dL (8.5-10.1); Carbon Dioxide 31 mmol/L (20-30)
[2023-03-26 07:05] LABS: Hematocrit 37.1 % (41.0-53.0); Hemoglobin 12.6 g/dL (13.5-17.5); Mean Corpuscular Hemoglobin 32.1 pg (28.0-32.0); Mean Corpuscular Volume 94.4 fL (80.0-100.0); Red Blood Cells 3.93 10^6/uL (4.5-5.90); Red Cell Distribution Width 14.1 % (11.8-14.3); White Blood Cell 3.8 10^3/uL (4.4-10.8)
[2023-03-26 07:09] LABS: Blood Urea Nitrogen 20 mg/dL (9-23); Glucose 85 mg/dL (74-106)
[2023-03-26 07:12] LABS: Band Neutrophils % (manual) 0; Basophils % (manual) 0 (0.0-2.0); Blast Cells 0; Metamyelocytes % 0; Myelocytes % 0; Promyelocytes % 0; Reactive Lymphocytes 0
[2023-03-26 07:45] VITALS: PULSE 60; RESP 16; O2SAT 95
[2023-03-26 08:04] LABS: Eosinophils % (manual) 1 (0-7); Lymphocytes % (manual) 28 (10.0-50.0); Monocytes % (manual) 20 (0-12); Platelet Estimate Adequate
[2023-03-26 08:05] LABS: RBC Morphology Normal
[2023-03-26] MEDS: NIFEdipine ER 30 MG TAB PO SCH (10:37)
[2023-03-26] MEDS: LOSARTAN POTASSIUM 50 MG TAB PO SCH (10:38)
[2023-03-26] MEDS: OXcarbazepine 300 MG TAB PO SCH ×2 (10:39→21:44)
[2023-03-26] MEDS: ENOXAPARIN SOD 40 MG/0.4 ML SYRINGE SC SCH (10:39)
[2023-03-26] MEDS: HCTZ 25 MG TAB PO SCH (10:39)
[2023-03-26] MEDS: LABETALOL HCL 200 MG TAB PO SCH ×2 (10:40→21:38)
[2023-03-26 12:23] LABS: Amphetamine Screen, Urine Neg (NEGATIVE)
[2023-03-26 12:24] LABS: Barbiturate Scree,Urine Neg (NEGATIVE); Benzodiazephine Screen, Urine Neg (NEGATIVE)
[2023-03-26 12:25] LABS: Cannabinoid Screen, Urine Neg (NEGATIVE); Cocaine Screen, Urine Neg (NEGATIVE); Opiate Scree,Urine Neg (NEGATIVE); Phencyclidine Screen, Urine Neg (NEGATIVE)
[2023-03-26 12:38] LABS: Urine Bacteria NONE SEEN /hpf (None Seen); Urine Blood Negative /uL (Negative); Urine Clarity Clear (Clear); Urine Color Yellow (Yellow); Urine Hyaline Cast MANY /lpf (0 - 2); Urine Mucus FEW (None Seen); Urine Protein, UAD 1+ (Negative); Urine Specific Gravity 1.036 (1.001-1.035); Urine Urobilinogen Normal (Negative); Urine WBC <1 /hpf (0 - 3); Urine pH 5.5 (5.0-8.0)
[2023-03-26] MEDS ORDERED: ASPI325T4 PO (13:51)
[2023-03-26 16:44] VITALS: BP 176/102; PULSE 65; RESP 18; TEMP 97.7; O2SAT 98
[2023-03-26 17:45] VITALS: BP 176/102; PULSE 65; RESP 18; TEMP 97.7; O2SAT 98
[2023-03-26] MEDS: hydrALAZINE HCL 20 MG/ML VL IV PRN (17:46)
[2023-03-26 20:00] VITALS: BP 133/95; PULSE 60; PULSE 78; PULSE 81; RESP 18; TEMP 36.5; O2SAT 98
[2023-03-26] MEDS: ATORVASTATIN 20 MG TAB PO SCH (21:38)
[2023-03-26 22:00] VITALS: BP 176/106; PULSE 78; RESP 18; TEMP 97.8; O2SAT 96
[2023-03-26] MEDS ORDERED: LORazepam 2MG/ML-1ML VIAL IV PRN (23:30)
[2023-03-27] VITALS (8 sets, daily range): BP systolic 152–189; BP diastolic 93–129; PULSE 62–91; RESP 18–22; TEMP 97.6–98.1; O2SAT 93–99
[2023-03-27 02:15] LABS: Triglycerides 78 mg/dL (< 150)
[2023-03-27 02:16] LABS: LDL Cholesterol 45 mg/dL (< 100)
[2023-03-27 02:17] LABS: Cholesterol 108 mg/dL (< 200); HDL Cholesterol 46 mg/dL (40-59)
[2023-03-27] MEDS: OXcarbazepine 300 MG TAB PO SCH ×4 (08:14→23:09)
[2023-03-27] MEDS: ASPirin 81 mg TAB PO SCH (09:32)
[2023-03-27] MEDS: HCTZ 25 MG TAB PO SCH (09:33)
[2023-03-27] MEDS: LOSARTAN POTASSIUM 50 MG TAB PO SCH (09:33)
[2023-03-27] MEDS: ENOXAPARIN SOD 40 MG/0.4 ML SYRINGE SC SCH (09:34)
[2023-03-27] MEDS: NIFEdipine ER 30 MG TAB PO SCH (09:34)
[2023-03-27] MEDS: LABETALOL HCL 200 MG TAB PO SCH ×2 (09:34→21:18)
[2023-03-27] MEDS: hydrALAZINE HCL 20 MG/ML VL IV PRN (13:21)
[2023-03-27] MEDS: cloNIDine HCL 0.1 MG TAB PO PRN (19:04)
[2023-03-27] MEDS: ATORVASTATIN 20 MG TAB PO SCH (21:17)
[2023-03-28 05:00] VITALS: BP 159/116; PULSE 76; RESP 18; TEMP 98.1; O2SAT 96
[2023-03-28] MEDS: OXcarbazepine 300 MG TAB PO SCH ×3 (05:23→18:16)
[2023-03-28 08:00] VITALS: PULSE 71; PULSE 74; RESP 17; O2SAT 96
[2023-03-28 08:48] VITALS: BP 160/84; PULSE 74; RESP 17; TEMP 97.9; O2SAT 96
[2023-03-28] MEDS: ASPirin 81 mg TAB PO SCH (09:37)
[2023-03-28] MEDS: HCTZ 25 MG TAB PO SCH (09:38)
[2023-03-28] MEDS: LOSARTAN POTASSIUM 50 MG TAB PO SCH (09:38)
[2023-03-28] MEDS: LABETALOL HCL 200 MG TAB PO SCH (09:38)
[2023-03-28] MEDS: NIFEdipine ER 30 MG TAB PO SCH (09:39)
[2023-03-28] MEDS: ENOXAPARIN SOD 40 MG/0.4 ML SYRINGE SC SCH (11:39)
[2023-03-28] MEDS: cloNIDine HCL 0.1 MG TAB PO PRN (13:47)
[2023-03-28 13:51] VITALS: BP 169/107; PULSE 68; RESP 18; TEMP 98; O2SAT 96
[2023-03-28] MEDS: hydrALAZINE HCL 20 MG/ML VL IV PRN (14:54)
[2023-03-28] MEDS ORDERED: cloNIDine HCL 0.1 MG TAB PO ONE (15:45)
[2023-03-28 17:06] VITALS: BP 150/103; PULSE 71; RESP 17; TEMP 36.4; O2SAT 97
[2023-03-28 17:07] VITALS: BP 150/103; PULSE 71; RESP 17; TEMP 97.6; O2SAT 97
== END 2023-03-28 18:57 | disposition home or self-care (01) | DRG 69 ==
LOC: ER 16:27 → TELE 23:42 → TELE-CENTR 03-26 17:27
PROVIDERS: ADMIT Nurse Practitioner; ATTEND Family Medicine
DX: G45.9 Transient cerebral ischemic attack, unspecified (principal); G93.41 Metabolic encephalopathy; I24.9 Acute ischemic heart disease, unspecified; G40.209 Localization-related (focal) (partial) symptomatic epilepsy and epileptic syndromes with complex partial seizures, not intractable, without status epilepticus; I16.9 Hypertensive crisis, unspecified; E11.9 Type 2 diabetes mellitus without complications; E78.00 Pure hypercholesterolemia, unspecified; E66.9 Obesity, unspecified; R29.6 Repeated falls; Z79.82 Long term (current) use of aspirin; Z79.899 Other long term (current) drug therapy; Z82.49 Family history of ischemic heart disease and other diseases of the circulatory system; Z91.013 Allergy to seafood; Z86.73 Personal history of transient ischemic attack (TIA), and cerebral infarction without residual deficits; Z68.35 Body mass index [BMI] 35.0-35.9, adult
CPT/HCPCS: 36415; 70450; 70545; 70551; 71046; 72131; 80048; 80053; 80061; 80307; 80320; 81001; 83880; 84484; 85007; 85027; 87081; 93005; 93306; 93886; 95819; 97163; G0378

== ENCOUNTER 2023-05-18 11:40 | Emergency (ER) | payer OTHER, MEDICAID ==
[~2023-05-18] VITALS: Ht 185.4 cm; Wt 115.0 kg
[~2023-05-18 11:40] MED LIST changes: -AMIO200T13 PO; +ASPI325T4 PO; -AZIT500T66 PO; -HYDR25TA4 PO; -LABE200T6 PO; -LIDO2SOL26 MT; -METO-158 PO; -NIFE1TAB31 PO; -PANT40TA2 PO; -SUCR1TAB22 OR
[2023-05-18 13:04] LABS: Basophils # (auto) 0 10 ^3/uL (0-0.2); Basophils % (auto) 1.2 % (0.0-2.0); Eosinophils # (auto) 0.2 10 ^3/uL (0-0.8); Eosinophils % (auto) 5.5 % (0.0-7.0); Hematocrit 41.7 % (41.0-53.0); Hemoglobin 13.9 g/dL (13.5-17.5); Lymphocytes % (auto) 29.1 % (10.0-50.0); Mean Corpuscular Hemoglobin 31.8 pg (28.0-32.0); Mean Corpuscular Hgb Conc. 33.3 g/dL (32.0-36.0); Mean Corpuscular Volume 95.4 fL (80.0-100.0); Monocytes # (auto) 0.4 10 ^3/uL (0-1.3); Monocytes % (auto) 11.5 % (0.0-12.0); Neutrophils # (auto) 1.9 10 ^3/uL (1.6-8.6); Neutrophils % (auto) 52.7 % (37.0-80.0); Nucleated Red Blood Cells % 0.1 %; Red Blood Cells 4.37 10^6/uL (4.5-5.90); Red Cell Distribution Width 14.4 % (11.8-14.3); White Blood Cell 3.6 10^3/uL (4.4-10.8)
[2023-05-18 13:12] LABS: Alanine Aminotransferase 12 U/L (7-40); Albumin 4.5 g/dL (3.2-4.8); Alkaline Phosphatase 93 U/L (46-116); Aspartate Aminotransferase 14 U/L (13-40); BUN/Creatinine Ratio 10.4 (10.0-20.0); Bilirubin, Total 0.5 mg/dL (0.2-1.0); Blood Urea Nitrogen 13 mg/dL (9-23); Calcium 9.3 mg/dL (8.7-10.4); Carbon Dioxide 29 mmol/L (20-30); Glucose 130 mg/dL (74-106); Magnesium 1.9 mg/dL (1.6-2.6); Total Protein 7.2 g/dL (5.7-8.2)
[2023-05-18 13:20] LABS: Anion Gap 5 (5-15); Chloride 103 mmol/L (98-107); Potassium 3.2 mmol/L (3.5-5.1); Sodium 137 mmol/L (136-145)
[2023-05-18 13:44] LABS: INR 1.06 (0.9-1.15); Prothrombin Time 11.1 sec (9.3-11.8)
[2023-05-18] MEDS ORDERED: KETOROLAC TROMETH 60MG/2ML VIAL IM ONE (14:15)
[2023-05-18] MEDS ORDERED: KETOROLAC TROMETH 60MG/2ML VIAL ONE (14:19)
[2023-05-18 14:57] VITALS: BP 164/104; PULSE 73; RESP 18; TEMP 97.2; O2SAT 97
[2023-05-18] MEDS ORDERED: GABA-1308 PO (16:11)
[2023-05-18] MEDS ORDERED: MELO-335 PO (16:11)
== END 2023-05-18 16:32 | disposition home or self-care (01) ==
LOC: ER 11:40
DX: I10 Essential (primary) hypertension (principal); E78.5 Hyperlipidemia, unspecified; Z88.8 Allergy status to other drugs, medicaments and biological substances; Z79.899 Other long term (current) drug therapy; Z86.2 Personal history of diseases of the blood and blood-forming organs and certain disorders involving the immune mechanism
CPT/HCPCS: 36415; 71045; 80053; 83735; 83880; 84484; 85025; 85610; 85730; 93005; 96372; 99285; J1885

== ENCOUNTER 2023-06-22 18:11 | Inpatient (IN) | payer OTHER, MEDICAID ==
[~2023-06-22] VITALS: Ht 182.9 cm; Wt 119.7 kg
[~2023-06-22 18:11] MED LIST changes: +GABA-1308 PO; +MELO-335 PO
[2023-06-22] MEDS ORDERED: cloNIDine HCL 0.1 MG TAB PO ONE (18:45)
[2023-06-22] MEDS ORDERED: SODIUM CHLORIDE 0.9% 1,000 ML IV ONE (18:45)
[2023-06-22 18:54] LABS: Basophils # (auto) 0 10 ^3/uL (0-0.2); Basophils % (auto) 0.5 % (0.0-2.0); Eosinophils # (auto) 0.1 10 ^3/uL (0-0.8); Eosinophils % (auto) 3.2 % (0.0-7.0); Hematocrit 40.1 % (41.0-53.0); Hemoglobin 13.5 g/dL (13.5-17.5); Lymphocytes # (auto) 1.1 10 ^3/uL (0.4-5.4); Lymphocytes % (auto) 22.8 % (10.0-50.0); Mean Corpuscular Hemoglobin 31.8 pg (28.0-32.0); Mean Corpuscular Hgb Conc. 33.7 g/dL (32.0-36.0); Mean Corpuscular Volume 94.4 fL (80.0-100.0); Monocytes # (auto) 0.6 10 ^3/uL (0-1.3); Monocytes % (auto) 13.8 % (0.0-12.0); Neutrophils # (auto) 2.8 10 ^3/uL (1.6-8.6); Neutrophils % (auto) 59.7 % (37.0-80.0); Red Blood Cells 4.25 10^6/uL (4.5-5.90); Red Cell Distribution Width 13.7 % (11.8-14.3); White Blood Cell 4.6 10^3/uL (4.4-10.8)
[2023-06-22 19:06] LABS: Chloride 100 mmol/L (98-107); Potassium 3.3 mmol/L (3.5-5.1); Sodium 134 mmol/L (136-145)
[2023-06-22 19:07] LABS: Anion Gap 6 (5-15); Carbon Dioxide 28 mmol/L (20-30)
[2023-06-22 19:08] LABS: Calcium 9.4 mg/dL (8.7-10.4)
[2023-06-22 19:10] LABS: INR 1.05 (0.9-1.15)
[2023-06-22 19:13] LABS: BUN/Creatinine Ratio 8.7 (10.0-20.0); Blood Urea Nitrogen 9 mg/dL (9-23); Glucose 100 mg/dL (74-106)
[2023-06-22 19:30] VITALS: PULSE 84; RESP 18; O2SAT 95
[2023-06-22 20:33] LABS: Urine Epithelial Cast None Seen /hpf (<5)
[2023-06-22 20:47] LABS: Urine Bacteria NONE SEEN /hpf (None Seen); Urine Blood Negative /uL (Negative); Urine Clarity Clear (Clear); Urine Color Yellow (Yellow); Urine Mucus FEW (None Seen); Urine Protein, UAD 1+ (Negative); Urine Specific Gravity 1.028 (1.001-1.035); Urine Urobilinogen Normal (Negative); Urine WBC <1 /hpf (0 - 3)
[2023-06-22] MEDS ORDERED: DOCUSATE SOD 100 MG CAP PO PRN (21:15)
[2023-06-22] MEDS ORDERED: POTASSIUM CHL 20 Meq TABLET PO ONE (21:30)
[2023-06-22] MEDS ORDERED: ATORVASTATIN 20 MG TAB PO SCH (22:00)
[2023-06-22] MEDS ORDERED: NITROGLYCERIN 0.4 MG SL TAB SL PRN (22:15)
[2023-06-22] MEDS ORDERED: MORPHINE SULFATE INJ 2 MG/ml SYRG IV PRN (22:15)
[2023-06-22] MEDS: SODIUM CHLORIDE 0.9% 1,000 ML IV SCH (22:17)
[2023-06-23] MEDS: HYDROcodone-ACET 5/325MG TAB PO PRN ×2 (03:07→12:01)
[2023-06-23] MEDS: OXcarbazepine 300 MG TAB PO SCH ×4 (04:34→22:03)
[2023-06-23] MEDS: SODIUM CHLORIDE 0.9% 1,000 ML IV SCH ×3 (05:13→22:03)
[2023-06-23 05:36] LABS: Basophils # (auto) 0 10 ^3/uL (0-0.2); Basophils % (auto) 0.6 % (0.0-2.0); Eosinophils # (auto) 0.2 10 ^3/uL (0-0.8); Eosinophils % (auto) 4.7 % (0.0-7.0); Hematocrit 35.5 % (41.0-53.0); Hemoglobin 12.1 g/dL (13.5-17.5); Lymphocytes # (auto) 0.9 10 ^3/uL (0.4-5.4); Lymphocytes % (auto) 26.2 % (10.0-50.0); Mean Corpuscular Hemoglobin 31.9 pg (28.0-32.0); Mean Corpuscular Hgb Conc. 34.1 g/dL (32.0-36.0); Mean Corpuscular Volume 93.4 fL (80.0-100.0); Monocytes # (auto) 0.6 10 ^3/uL (0-1.3); Monocytes % (auto) 17.4 % (0.0-12.0); Neutrophils # (auto) 1.8 10 ^3/uL (1.6-8.6); Neutrophils % (auto) 51.1 % (37.0-80.0); Nucleated Red Blood Cells % 0.1 %; Red Blood Cells 3.81 10^6/uL (4.5-5.90); Red Cell Distribution Width 13.5 % (11.8-14.3); White Blood Cell 3.6 10^3/uL (4.4-10.8)
[2023-06-23 05:49] LABS: Alanine Aminotransferase 10 U/L (7-40); Albumin 3.9 g/dL (3.2-4.8); Alkaline Phosphatase 69 U/L (46-116); Anion Gap 3 (5-15); Aspartate Aminotransferase 12 U/L (13-40); BUN/Creatinine Ratio 9.7 (10.0-20.0); Blood Urea Nitrogen 10 mg/dL (9-23); Calcium 8.5 mg/dL (8.7-10.4); Carbon Dioxide 31 mmol/L (20-30); Chloride 101 mmol/L (98-107); Glucose 107 mg/dL (74-106); Potassium 3.2 mmol/L (3.5-5.1); Sodium 135 mmol/L (136-145)
[2023-06-23 05:50] LABS: Bilirubin, Total 0.4 mg/dL (0.2-1.0); Total Protein 6.4 g/dL (5.7-8.2)
[2023-06-23 07:15] VITALS: PULSE 65; RESP 32; O2SAT 92
[2023-06-23] MEDS: ACETAMINOPHEN 325 MG TAB PO PRN ×2 (08:00→18:15)
[2023-06-23] MEDS: LOSARTAN POTASSIUM 50 MG TAB PO SCH (10:12)
[2023-06-23] MEDS: ASPirin 81 mg TAB PO SCH (10:13)
[2023-06-23] MEDS: ONDANSETRON HCL 4 MG/2 ML VIAL IV PRN (12:01)
[2023-06-23 20:56] VITALS: PULSE 63; RESP 20; O2SAT 94
[2023-06-23] MEDS: ATORVASTATIN 20 MG TAB PO SCH ×2 (22:03→22:04)
[2023-06-24] MEDS: OXcarbazepine 300 MG TAB PO SCH ×4 (05:43→22:57)
[2023-06-24] MEDS: ACETAMINOPHEN 325 MG TAB PO PRN ×4 (06:13→22:56)
[2023-06-24] MEDS: hydrALAZINE HCL 20 MG/ML VL IV PRN ×2 (06:31→14:33)
[2023-06-24] MEDS: SODIUM CHLORIDE 0.9% 1,000 ML IV SCH ×3 (06:35→21:40)
[2023-06-24 08:00] VITALS: PULSE 75; RESP 18; O2SAT 94
[2023-06-24] MEDS ORDERED: LORazepam 2MG/ML-1ML VIAL IV PRN (09:45)
[2023-06-24] MEDS: ASPirin 81 mg TAB PO SCH (11:13)
[2023-06-24] MEDS: LOSARTAN POTASSIUM 50 MG TAB PO SCH (11:14)
[2023-06-24] MEDS: cloNIDine HCL 0.1 MG TAB PO PRN ×3 (12:47→22:57)
[2023-06-24] MEDS ORDERED: MECLIZINE HCL 25 MG TAB PO PRN (18:00)
[2023-06-24 19:30] VITALS: PULSE 76; RESP 15; O2SAT 94
[2023-06-24] MEDS: ONDANSETRON HCL 4 MG/2 ML VIAL IV PRN (20:54)
[2023-06-24 22:00] VITALS: BP 160/82; PULSE 85; RESP 95; TEMP 98.3; O2SAT 18
[2023-06-24] MEDS: ATORVASTATIN 20 MG TAB PO SCH (22:56)
[2023-06-24 23:00] VITALS: BP 160/80; PULSE 84; RESP 18; TEMP 36.8
[2023-06-25] VITALS (7 sets, daily range): BP systolic 124–165; BP diastolic 50–114; PULSE 65–92; RESP 18–20; TEMP 98.3–98.7; O2SAT 96–100
[2023-06-25] MEDS: SODIUM CHLORIDE 0.9% 1,000 ML IV SCH ×2 (03:02→03:03)
[2023-06-25] MEDS: OXcarbazepine 300 MG TAB PO SCH ×4 (04:47→22:18)
[2023-06-25] MEDS: cloNIDine HCL 0.1 MG TAB PO PRN (05:06)
[2023-06-25] MEDS ORDERED: POTASSIUM CHL 20 Meq TABLET PO ONE (09:45)
[2023-06-25] MEDS: ASPirin 81 mg TAB PO SCH (09:59)
[2023-06-25] MEDS: LOSARTAN POTASSIUM 50 MG TAB PO SCH (09:59)
[2023-06-25] MEDS: LISINOPRIL 10 MG TAB PO SCH (09:59)
[2023-06-25 10:04] LABS: Chloride 102 mmol/L (98-107); Potassium 3.2 mmol/L (3.5-5.1); Sodium 137 mmol/L (136-145)
[2023-06-25 10:05] LABS: Anion Gap 6 (5-15); Calcium 9.4 mg/dL (8.5-10.1); Carbon Dioxide 29 mmol/L (20-30)
[2023-06-25 10:10] LABS: BUN/Creatinine Ratio 5.8 (10.0-20.0); Blood Urea Nitrogen 6 mg/dL (9-23); Glucose 92 mg/dL (74-106); Triglycerides 55 mg/dL (< 150)
[2023-06-25 10:11] LABS: LDL Cholesterol 63 mg/dL (< 100)
[2023-06-25 10:12] LABS: Cholesterol 129 mg/dL (< 200); HDL Cholesterol 53 mg/dL (40-59)
[2023-06-25 10:16] LABS: Basophils # (auto) 0 10 ^3/uL (0-0.2); Eosinophils # (auto) 0.1 10 ^3/uL (0-0.8); Eosinophils % (auto) 2.1 % (0.0-7.0); Hematocrit 39.7 % (41.0-53.0); Hemoglobin 13.5 g/dL (13.5-17.5); Lymphocytes # (auto) 0.9 10 ^3/uL (0.4-5.4); Lymphocytes % (auto) 19.2 % (10.0-50.0); Mean Corpuscular Hemoglobin 32.1 pg (28.0-32.0); Mean Corpuscular Hgb Conc. 33.9 g/dL (32.0-36.0); Mean Corpuscular Volume 94.8 fL (80.0-100.0); Monocytes # (auto) 0.7 10 ^3/uL (0-1.3); Monocytes % (auto) 14.2 % (0.0-12.0); Neutrophils # (auto) 3.1 10 ^3/uL (1.6-8.6); Neutrophils % (auto) 63.5 % (37.0-80.0); Nucleated Red Blood Cells % 0.1 %; Red Blood Cells 4.19 10^6/uL (4.5-5.90); Red Cell Distribution Width 13.8 % (11.8-14.3); White Blood Cell 4.9 10^3/uL (4.4-10.8)
[2023-06-25] MEDS: ATORVASTATIN 20 MG TAB PO SCH (22:18)
[2023-06-25] MEDS: hydrALAZINE HCL 20 MG/ML VL IV PRN (22:23)
[2023-06-26] VITALS (9 sets, daily range): BP systolic 111–179; BP diastolic 63–115; PULSE 63–96; RESP 17–20; TEMP 98–98.8; O2SAT 90–99
[2023-06-26] MEDS: OXcarbazepine 300 MG TAB PO SCH ×4 (04:22→21:53)
[2023-06-26] MEDS ORDERED: MECLIZINE HCL 25 MG TAB PO PRN (09:30)
[2023-06-26] MEDS: ASPirin 81 mg TAB PO SCH (09:49)
[2023-06-26] MEDS: LOSARTAN POTASSIUM 50 MG TAB PO SCH (09:50)
[2023-06-26] MEDS: LISINOPRIL 10 MG TAB PO SCH (09:50)
[2023-06-26] MEDS ORDERED: NIFEdipine ER 30 MG TAB PO ONE (14:30)
[2023-06-26] MEDS ORDERED: hydroCHLOROthiazide 25 MG TAB PO ONE (14:30)
[2023-06-26] MEDS: ATORVASTATIN 20 MG TAB PO SCH (21:52)
[2023-06-26] MEDS: ACETAMINOPHEN 325 MG TAB PO PRN (21:56)
[2023-06-26] MEDS: hydrALAZINE HCL 20 MG/ML VL IV PRN (22:49)
[2023-06-27] VITALS (7 sets, daily range): BP systolic 161–180; BP diastolic 101–116; PULSE 68–99; RESP 17–19; TEMP 97.8–98.4; O2SAT 95–97
[2023-06-27] MEDS: ACETAMINOPHEN 325 MG TAB PO PRN (03:30)
[2023-06-27 04:48] LABS: Basophils # (auto) 0 10 ^3/uL (0-0.2); Basophils % (auto) 0.8 % (0.0-2.0); Eosinophils # (auto) 0.4 10 ^3/uL (0-0.8); Eosinophils % (auto) 7.1 % (0.0-7.0); Hematocrit 37.7 % (41.0-53.0); Hemoglobin 12.8 g/dL (13.5-17.5); Lymphocytes # (auto) 1.3 10 ^3/uL (0.4-5.4); Lymphocytes % (auto) 26.3 % (10.0-50.0); Mean Corpuscular Hgb Conc. 33.8 g/dL (32.0-36.0); Mean Corpuscular Volume 94.5 fL (80.0-100.0); Monocytes # (auto) 0.9 10 ^3/uL (0-1.3); Monocytes % (auto) 17.7 % (0.0-12.0); Neutrophils # (auto) 2.4 10 ^3/uL (1.6-8.6); Neutrophils % (auto) 48.1 % (37.0-80.0); Red Blood Cells 3.99 10^6/uL (4.5-5.90); Red Cell Distribution Width 13.9 % (11.8-14.3); White Blood Cell 4.9 10^3/uL (4.4-10.8)
[2023-06-27 05:02] LABS: Calcium 8.8 mg/dL (8.7-10.4); Chloride 105 mmol/L (98-107); Potassium 3.2 mmol/L (3.5-5.1); Sodium 140 mmol/L (136-145)
[2023-06-27 05:03] LABS: Anion Gap 6 (5-15); Carbon Dioxide 29 mmol/L (20-30)
[2023-06-27 05:08] LABS: BUN/Creatinine Ratio 12.4 (10.0-20.0); Blood Urea Nitrogen 13 mg/dL (9-23); Glucose 93 mg/dL (74-106)
[2023-06-27] MEDS: OXcarbazepine 300 MG TAB PO SCH ×4 (05:19→21:40)
[2023-06-27] MEDS: hydrALAZINE HCL 20 MG/ML VL IV PRN ×3 (05:34→18:30)
[2023-06-27 08:33] LABS: Hepatitis B Surface Antigen Negative (Negative)
[2023-06-27 08:54] LABS: Hepatitis C Antibody Negative (Negative)
[2023-06-27] MEDS ORDERED: NIFEdipine ER 30 MG TAB PO SCH (10:00)
[2023-06-27] MEDS: GABAPENTIN 100 MG CAP PO SCH ×3 (10:51→21:40)
[2023-06-27] MEDS: ASPirin 81 mg TAB PO SCH (10:52)
[2023-06-27] MEDS: hydroCHLOROthiazide 25 MG TAB PO SCH (10:55)
[2023-06-27] MEDS: LOSARTAN POTASSIUM 50 MG TAB PO SCH (10:56)
[2023-06-27] MEDS: cloNIDine HCL 0.1 MG TAB PO PRN ×2 (13:46→22:50)
[2023-06-27] MEDS: HYDROcodone-ACET 5/325MG TAB PO PRN ×2 (13:49→21:40)
[2023-06-27] MEDS ORDERED: POTASSIUM EFFERVESENT TAB 25 MEQ PO ONE (15:15)
[2023-06-27] MEDS ORDERED: NIFE1TAB31 PO (15:28)
[2023-06-27] MEDS ORDERED: NIFEdipine ER 30 MG TAB PO ONE (15:30)
[2023-06-27] MEDS: cloNIDine HCL 0.1 MG TAB PO SCH ×2 (18:15→21:41)
[2023-06-27] MEDS: ATORVASTATIN 20 MG TAB PO SCH (21:40)
[2023-06-28] MEDS: OXcarbazepine 300 MG TAB PO SCH ×2 (04:26→09:03)
[2023-06-28] MEDS: ACETAMINOPHEN 325 MG TAB PO PRN (04:32)
[2023-06-28 05:00] VITALS: BP 143/89; PULSE 17; PULSE 70; PULSE 96; RESP 17; TEMP 97.9; O2SAT 96
[2023-06-28] MEDS: cloNIDine HCL 0.1 MG TAB PO SCH ×2 (05:27→13:00)
[2023-06-28] MEDS: GABAPENTIN 100 MG CAP PO SCH ×2 (05:27→13:00)
[2023-06-28 08:00] LABS: Chloride 105 mmol/L (98-107); Potassium 3.6 mmol/L (3.5-5.1); Sodium 138 mmol/L (136-145)
[2023-06-28 08:01] LABS: Anion Gap 4 (5-15); Calcium 9.1 mg/dL (8.5-10.1); Carbon Dioxide 29 mmol/L (20-30)
[2023-06-28 08:06] LABS: BUN/Creatinine Ratio 9.8 (10.0-20.0); Blood Urea Nitrogen 10 mg/dL (9-23); Glucose 97 mg/dL (74-106)
[2023-06-28] MEDS: ASPirin 81 mg TAB PO SCH (09:03)
[2023-06-28] MEDS: HYDROcodone-ACET 5/325MG TAB PO PRN (09:03)
[2023-06-28] MEDS: hydroCHLOROthiazide 25 MG TAB PO SCH (09:04)
[2023-06-28] MEDS: LOSARTAN POTASSIUM 50 MG TAB PO SCH (09:05)
[2023-06-28] MEDS ORDERED: NIFEdipine ER 30 MG TAB PO SCH (10:00)
[2023-06-28] MEDS ORDERED: CLON0.1T PO ×2 (10:35)
[2023-07-04 02:06] LABS: Renin Activity <0.167 ng/mL/hr (.)
== END 2023-06-28 13:26 | disposition home health service (06) | DRG 305 ==
LOC: EDUNIT# 18:11 → ER 18:11 → EDBD 18:11 → TELE 22:17 → TELE-WESTW 06-24 21:25 → WEST WING 06-27 20:48
PROVIDERS: ADMIT Nurse Practitioner Family; ATTEND Internal Medicine
DX: I16.0 Hypertensive urgency (principal); S09.90XA Unspecified injury of head, initial encounter; E87.6 Hypokalemia; R26.81 Unsteadiness on feet; G50.0 Trigeminal neuralgia; E11.9 Type 2 diabetes mellitus without complications; E66.9 Obesity, unspecified; E78.5 Hyperlipidemia, unspecified; Z68.35 Body mass index [BMI] 35.0-35.9, adult; E26.9 Hyperaldosteronism, unspecified; F03.90 Unspecified dementia, unspecified severity, without behavioral disturbance, psychotic disturbance, mood disturbance, and anxiety; I10 Essential (primary) hypertension; W06.XXXA Fall from bed, initial encounter; I25.2 Old myocardial infarction; Y93.89 Activity, other specified; Y92.89 Other specified places as the place of occurrence of the external cause; Y99.8 Other external cause status; Z79.82 Long term (current) use of aspirin; Z86.73 Personal history of transient ischemic attack (TIA), and cerebral infarction without residual deficits; Z79.899 Other long term (current) drug therapy; Z91.013 Allergy to seafood
CPT/HCPCS: 36415; 70450; 70551; 71045; 72170; 80048; 80053; 80061; 81001; 82088; 83036; 83735; 84244; 84443; 85025; 85610; 85730; 86803; 87340; 93005; 93306; 93886; 95819; 96360; 97110; 97116; 97163; 97530; 99291; G0378; J2405